=== PATIENT | female | born 1965 | race Caucasian/White ===

== ENCOUNTER → 2016-07-01 | Outpatient (CLI) | payer MEDICAID ==
[~2016-07-01] MED LIST: ADVIL200 MG PO; ALEVE220 MG PO; DICLOFENAC 50MG50 MG PO; FLEXERIL10 MG PO; GABAPENTIN 600600 MG PO; LORTAB 5/500 501 TAB PO; MEDROL 4MG. DOSE4 MG PO; PHENERGAN 25MG.25 M1 PO; PREDNISONE 5MG.5 MG PO; ROBAXIN-750750 MG PO; VICODIN 7.5/501 EACH PO; ZANAFLEX4 MG NG
[2016-07-01 18:55] LABS: LYMPH # 2.2 K/mm3 (0.7-4.5); LYMPH % 9.4 % (10-50.0)
[2016-07-01 18:59] LABS: HEMOGLOBIN 8.2 g/dL (12.2-16.2)
[2016-07-01 19:28] LABS: BUN 22 mg/dL (7-18); GFR (ESTIMATED) 59 ML/MIN (59-)
[2016-07-01 23:03] LABS: NEUTROPHILS 86 % (42-76)
[2016-07-03 08:43] LABS: Folate (Folic Acid) 16.3 ng/mL (>3.0); Vitamin D, 25-Hydroxy 23.2 ng/mL (30.0-100.0)
== END ==
LOC: LAB 18:23
PROVIDERS: Physician Assistant
DX: R51 Headache (principal)

== ENCOUNTER 2017-01-15 06:14 | Day surgery (SDC) | payer MEDICAID ==
[~2017-01-15] VITALS: Ht 170.2 cm; Wt 72.6 kg
[~2017-01-15 06:14] MED LIST changes: +KETOROLAC 10MG10 MG PO; +LIPITOR40 MG PO; +LOVENOX 4040 MG/0.1 IJ; +MULTIVITAMIN1 TAB PO; +PLAVIX 75MG TAB75 MG PO; +PROPRANOLOL HCL40 MG PO; +VITAMIN D31000 IU PO
--- OUTSIDE RECORDS SUMMARY | 2017-01-15 06:17 | External Medical Summary Rpt ---
Demographics Preferred Language Azeri Marital Status Unknown Scientologist Affiliation Unknown Race Unknown Ethnic Group Unknown Author Author , ANNELIESE COY Address Unknown Phone Immunization Unable to retrieve immunization data due to connection failure with Immunization Registry. Please try again later.
--- OUTSIDE RECORDS SUMMARY | 2017-01-15 06:17 | External Medical Summary Rpt ---
Demographics Preferred Language Swedish Marital Status Unknown Church Affiliation Unknown Race Unknown Ethnic Group Unknown Author Author , ANNELIESE COY Address Unknown Phone Immunization Unable to retrieve immunization data due to connection failure with Immunization Registry. Please try again later.
--- OUTSIDE RECORDS SUMMARY | 2017-01-15 06:17 | External Medical Summary Rpt ---
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 M19.90 Unspecified 11-13-2016 osteoarthri tis, unspecified site R40.2141 Coma scale, 11-13-2016 eyes open, spontaneous , in the field [EMT or ambulance] R40.2251 Coma scale, 11-13-2016 best verbal response, oriented, in the field [EMT or ambulance] R40.2361 Coma scale, 11-13-2016 best motor response, obeys commands, in the field [EMT or ambulance] Z87.891 Personal 11-13-2016 history of nicotine dependence Z53.20 Procedure 11-09-2016 and treatment not carried out because of patient's decision for unspecified reasons H54.7 Unspecified 11-07-2016 visual loss D64.9 Anemia, 11-07-2016 unspecified I63.9 Cerebral 11-07-2016 infarction, unspecified R51 Headache 11-07-2016 D50.8 OTHER IRON DEFICIENCY ANEMIAS Results Labs Lab Lab Date Result Refere Interp Status Commen Order Detail nces retati t Range on Blood product special preparation [Type] (01-12-2017 17:30) Blood BLOOD complet product 017 UNIT ed 17:30 RELEASE special prepara tion [Type] Blood product special preparation [Type] (01-12-2017 15:02) Blood BLOOD complet product 017 UNIT ed 15:02 RELEASE special prepara tion [Type] Blood product special preparation [Type] (01-11-2017 12:17) Blood BLOOD complet product 017 UNIT ed 12:17 RELEASE special prepara tion [Type] Blood product special preparation [Type] (01-11-2017 10:28) Blood BLOOD complet product 017 UNIT ed 10:28 RELEASE special prepara tion [Type] Blood type & Crossmatch panel in Blood (01-10-2017 09:18) Blood NEGATIV NEGATIV complet group 017 E E ed antibod 09:18 y screen [Presen ce] in Serum or Plasma Rh POSITIV complet [Type] 017 E ed in 09:18 Blood ABO A complet group 017 ed [Type] 09:18 in Blood Blood type & Crossmatch panel in Blood (01-10-2017 09:18) Major COMPAT complet crossma 017 ed tch 09:18 [interp retatio n] Major COMPAT complet crossma 017 ed tch 09:18 [interp retatio n] by Immedia te spin Blood product special preparation [Type] (12-18-2016 09:27) Blood BLOOD complet product 017 UNIT ed 09:27 RELEASE special prepara tion [Type] Blood group antibody screen [Presence] in Serum or Plasma (12-18-2016) Blood POSITIV NEGATIV Abnorma complet group 017 E E l ed antibod y screen [Presen ce] in Serum or Plasma Blood group antibody screen [Presence] in Serum or Plasma --after transfusion reaction (12-18-2016) Blood POSTIVE complet group 017 ed antibod y screen [Presen ce] in Serum or Plasma --after transfu mary reactio n Major crossmatch.re-crossmatch [interpretation] (12-18-2016) Major COMPATI COMP complet crossma 017 BLE ed tch.re- crossma tch [interp retatio n] Blood type & Crossmatch panel in Blood (12-18-2016) Blood COMPATI complet type & 017 BLE ed Crossma tch panel in Blood Blood type & Crossmatch panel in Blood (12-17-2016 10:55) Blood POSITIV NEGATIV Abnorma complet group 017 E E l ed antibod 10:55 y screen [Presen ce] in Serum or Plasma Rh POSITIV complet [Type] 017 E ed in 10:55 Blood ABO A complet group 017 ed [Type] 10:55 in Blood Blood type & Crossmatch panel in Blood (12-17-2016 10:55) Major COMPAT complet crossma 017 ed tch 10:55 [interp retatio n] Major COMPAT complet crossma 017 ed tch 10:55 [interp retatio n] by Immedia te spin Blood type & Crossmatch panel in Blood (12-09-2016 11:40) Blood POSITIV NEGATIV Abnorma complet group 017 E E l ed antibod 11:40 y screen [Presen ce] in Serum or Plasma Rh POSITIV complet [Type] 017 E ed in 11:40 Blood ABO A complet group 017 ed [Type] 11:40 in Blood Hemoglobin.gastrointestinal [Presence] in Stool (11-28-2016 06:30) Hemoglo POSITIV NEG complet bin.gas 017 E ed trointe 06:30 stinal [Presen ce] in Stool --1st specime n Differential panel, method unspecified - (11-27-2016 12:27) Anisocy 1+ complet tosis 017 ed [Presen 12:27 ce] in Blood Manual ELLIPTO complet differe 017 CYTES ed ntial 12:27 1+ comment [interp retatio n] in Blood Narrati ve Hypochr 2+ complet omia 017 ed [Presen 12:27 ce] in Blood LYMPH 10 % 10% - Normal complet 017 50% ed 12:27 Platele NORMAL complet ts 017 ed [Presen 12:27 ce] in Blood by Light microsc opy Poikilo 2+ complet cytosis 017 ed 12:27 [Presen ce] in Blood by Light microsc opy Hemoglobin.gastrointestinal [Presence] in Stool (11-27-2016) Hemoglo POSITIV NEG complet bin.gas 017 E ed trointe stinal [Presen ce] in Stool --1st specime n Blood group antibody screen [Presence] in Serum or Plasma (11-26-2016 14:35) Blood POSITIV NEGATIV Abnorma complet group 017 E E l ed antibod 14:35 y screen [Presen ce] in Serum or Plasma Direct antiglobulin test.unspecified reagent [Presence] on Red Blood Cells (11-26-2016 14:35) Direct NEGATIV NEGATIV complet antiglo 017 E E ed bulin 14:35 test.un specifi ed reagent [Presen ce] on Red Blood Cells Urinalysis dipstick W Reflex Microscopic panel in Urine (11-26-2016 14:35) Appeara CLEAR CLEAR complet nce of 017 ed Urine 14:35 Bacteri 3+ O complet a 017 ed [Presen 14:35 ce] in Urine sedimen t by Light microsc opy Bilirub NEGATIV NEG complet in 017 E ed [Presen 14:35 ce] in Urine by Test strip Erythro NEGATIV NEG complet cytes 017 E ed [Presen 14:35 ce] in Urine Color YELLOW YELLOW complet of 017 ed Urine 14:35 Hyaline OCC NONE complet casts 017 ed [Presen 14:35 ce] in Urine sedimen t by Light microsc opy Ketones NEGATIV NEG complet 017 E ed [Presen 14:35 ce] in Urine by Automat ed test strip Mucus TRACE NEG Abnorma complet [Presen 017 l ed ce] in 14:35 Urine sedimen t by Light microsc opy Mucus 11-26-2 OCC OCC complet [Presen 017 ed ce] in 14:35 Urine sedimen t by Light microsc opy Nitrite 2 NEGATIV NEG complet 017 E ed [Presen 14:35 ce] in Urine by Test strip Erythro 11-26-2 NONE 0 complet cytes 017 ed [Presen 14:35 ce] in Urine sedimen t by Light microsc opy Epithel 11-26-2 20-50 0#/hp complet ial 017 f - ed cells.s 14:35 5#/hp quamous f [Presen ce] in Urine sedimen t by Microsc opy high power field Urobili 0.2 NEG complet nogen 017 ed [Presen 14:35 ce] in Urine by Test strip Leukocy 5-10 O complet tiesha 017 wbc/hpf ed [#/volu 14:35 me] in Urine Blood product special preparation [Type] (11-26-2016 08:28) Blood BLOOD complet product 017 UNIT ed 08:28 RELEASE special prepara tion [Type] Blood product special preparation [Type] (11-25-2016 15:08) Blood BLOOD complet product 017 UNIT ed 15:08 RELEASE special prepara tion [Type] Blood type & Crossmatch panel in Blood (11-25-2016 10:25) Blood NEGATIV NEGATIV complet group 017 E E ed antibod 10:25 y screen [Presen ce] in Serum or Plasma Rh POSITIV complet [Type] 017 E ed in 10:25 Blood ABO A complet group 017 ed [Type] 10:25 in Blood Blood type & Crossmatch panel in Blood (11-25-2016 10:25) Major COMPAT complet crossma 017 ed tch 10:25 [interp retatio n] Major COMPAT complet crossma 017 ed tch 10:25 [interp retatio n] by Immedia te spin TSH SerPl DL<=0.005 mIU/L-aCnc (11-08-2016 02:39) TSH 1.78 0.4-4.2 complet SerPl 017 uIU/mL ed DL<=0.0 02:39 05 mIU/L-a Cnc Magnesium SerPl-mCnc (11-08-2016 02:39) Magnesi 2.0 1.9-2.4 complet um 017 mg/dL ed SerPl-m 02:39 Cnc Hgb A1c MFr Bld (11-08-2016 02:39) Hgb A1c 6.2 % 4.7-6.0 complet MFr 017 ed Bld 02:39 Ferritin SerPl-mCnc (11-07-2016 20:54) Ferriti 06-08-2 5 ng/mL 13-150 complet n 017 ed SerPl-m 20:54 Cnc Transferrin SerPl-mCnc (11-07-2016 20:54) Transfe 256 200-360 complet rrin 017 mg/dL ed SerPl-m 20:54 Cnc Iron SerPl-mCnc (11-07-2016 20:54) Iron 29 30-160 complet SerPl-m 017 ug/dL ed Cnc 20:54 Hgb A1c MFr Bld (11-07-2016 20:22) Hgb A1c 5.9 % 4.7-6.0 complet MFr 017 ed Bld 20:22 Blood type & Indirect antibody screen panel in Blood (11-07-2016 10:15) Blood NEGATIV NEGATIV complet group 017 E E ed antibod 10:15 y screen [Presen ce] in Serum or Plasma Rh POSITIV complet [Type] 017 E ed in 10:15 Blood ABO A complet group 017 ed [Type] 10:15 in Blood
--- OUTSIDE RECORDS SUMMARY | 2017-01-15 06:17 | External Medical Summary Rpt ---
Author Author , ANNELIESE COY Address Unknown Phone [email or web address] Purpose Continuity of Care Document - 11-07-2016 [...]
--- OUTSIDE RECORDS SUMMARY | 2017-01-15 06:19 | External Medical Summary Rpt ---
Author Author [employer], [employer] Organization [employer] Address Unknown Phone Unavailable Results Hemoglobin & Hematocrit panel in Blood Observa Value Referen Units Interpr Notes Date tion ce etation Range Hematocri 37.0 - % Low No Aug 14 t [Volume 47.0 informati 2017 on in 10:16 AM Fraction] source of Blood data Hemoglobi 12.2 - g/dL Low No Dec 14 n 16.2 informati 2017 [Mass/vol on in 10:16 AM ume] in source Blood data Blood product special preparation [Type] Observa Value Referen Units Interpr Notes Date tion ce etation Range Blood BLOOD No No No BLOOD Jan 12 product UNIT informa informa informa UNIT # 2017 RELEASE tion in tion in ti in : W0382 5:30 PM special source source source 17 data data data [id number] prepara RELEASE tion D [Type] 7 [id number] rks,Lc nO POSITIV E Blood product special preparation [Type] Observa Value Referen Units Interpr Notes Date tion ce etation Range Blood BLOOD No No No BLOOD Jan 12 product UNIT informa informa informa UNIT # 2017 RELEASE tion in tion in in : W0382 3:02 PM special source source source 17 data data data [id number] prepara RELEASE tion D [Type] 7Marie Smith POS Hemoglobin & Hematocrit panel in Blood Observa Value Referen Units Interpr Notes Date tion ce etation Range 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: POST BLOOD TO BE DRAWN AT 1455 Hematocri 37.0 - % Low No Aug 12 t [Volume 47.0 informati 2016 3:02 on in PM Fraction] source of Blood data Hemoglobi 12.2 - g/dL Low No Aug 12 n 16.2 informati 2016 3:02 [Mass/vol on in PM ume] in source Blood data Blood product special preparation [Type] Observa Value Referen Units Interpr Notes Date tion ce etation Range Blood BLOOD No No No BLOOD Jan 11 product UNIT informa informa informa UNIT # 2017 RELEASE tion in in in : W0382 12:17 special source source source 17 PM data data data [id number] prepara [id number] tion LEASED [Type] 7 O'Kirt, Heena Blood product special preparation [Type] Observa Value Referen Units Interpr Notes Date ti ce etation Range Blood BLOOD No No No BLOOD Jan 11 product UNIT informa informa informa UNIT # 2017 RELEASE ti in in in : W0382 10:28 special source source source 17 AM data data data [id number] prepara [id number] tion LEASED [Type] 7O'Kirt ,Kaitly n Blood type & Crossmatch panel in Blood Observa Value Referen Units Interpr Notes Date ti ce etation Range Major COMPAT No No No No Jan 10 crossma informa informa informa informa 2017 tch tion in in in in 9:18 AM [interp source source source source retatio data data data data n] Major COMPAT No No No No Jan 10 crossma informa informa informa informa 2017 tch tion in tion in in in 9:18 AM [interp source source source source retatio data data data data n] by Immedia te spin Blood type & Crossmatch panel in Blood Observa Value Referen Units Interpr Notes Date ce etation Range Major COMPAT No No No No Jan 10 crossma informa informa informa informa 2017 tch tion in tion in ti in in 9:18 AM [interp source source source source retatio data data data data n] Major COMPAT No No No No Jan 10 crossma informa informa informa informa 2017 tch tion in tion in ti in ti in 9:18 AM [interp source source source source retatio data data data data n] by Immedia te spin Blood type & Crossmatch panel in Blood Observa Value Referen Units Interpr Notes Date ti ce etation Range Major COMPAT No No No No Jan 10 crossma informa informa informa informa 2017 tch tion in tion in tion in tion in 9:18 AM [interp source source source source retatio data data data data n] Major COMPAT No No No No Jan 10 crossma informa informa informa informa 2016 tch tion in tion in tion in tion in 9:18 AM [interp source source source source retatio data data data data n] by Immedia te spin Blood type & Crossmatch panel in Blood Observa Value Referen Units Interpr Notes Date tion ce etation Range Blood NEGATIV NEGATIV No No PATIENT Jan 10 group E E informa informa HAS 2017 antibod tion in tion in PREVIOU 9:18 AM y source source S HX OF screen data data [Presen ANTI-Fy ce] in a AND Serum ANTI-E. or SPECIME Plasma N SENT TO [facility] FOR FURTHER TESTING ANDANTI GEN NEGATIV E UNITS. Rh POSITIV No No No No Jan 10 [Type] E informa informa informa informa 2016 in tion in tion in tion in ti in 9:18 AM Blood source source source source data data data data ABO A No No No No Jan 10 group informa informa informa informa 2016 [Type] tion in tion in tion in tion in 9:18 AM in source source source source Blood data data data data Blood type & Crossmatch panel in Blood Observa Value Referen Units Interpr Notes Date ce etation Range Major COMPAT No No No No Jan 10 crossma informa informa informa informa 2016 tch tion in tion in tion in tion in 9:18 AM [interp source source source source retatio data data data data n] Major COMPAT No No No No Jan 10 crossma informa informa informa informa 2016 tch tion in tion in tion in tion in 9:18 AM [interp source source source source retatio data data data data n] by Immedia te spin Hemoglobin & Hematocrit panel in Blood Observa Value Referen Units Interpr Notes Date ti ce etation Range Hematocri 37.0 - % Low No Jan 10 t [Volume 47.0 informati 2016 9:18 on in AM Fraction] source of Blood data Hemoglobi 12.2 - g/dL Low alert Jan 10 n 16.2 2016 9:18 [Mass/vol CRITICAL AM ume] in RESULTS Blood KATERINA LTS CALLED TO: MICHELLE 01/10/17 0948Meule Dyan mendez Reticulocytes [#/volume] in Blood by Automated count Observa Value Referen Units Interpr Notes Date tion ce etation Range Reticuloc 0.9 - 3.2 % High No Jan 01 ytes informati 2016 [#/volume on in 11:51 AM ] in source Blood by data Automated count INR in Blood by Coagulation assay Observa Value Referen Units Interpr Notes Date tion ce etation Range INR in 0.9 - 1.1 No Normal INDICATIO Jan 01 Blood by informati N 2017 Coagulati on in 11:51 AM on assay source INR data RANGETHER APY FOR DVT, PE, ATRIAL FIB; 2.0 - 3.0PROPHY LAXIS FOR VTETHERAP Y FOR MECHANICA L HEART 2.5 - 3.5VALVE; PREVENTIO N OF SYSTEMICE MBOLISM SECONDARY TO AMI Prothromb 9.4 - SECONDS Normal No Jan 01 in time 11.8 informati 2016 (PT) in on in 11:51 AM Platelet source poor data plasma by Coagulati on assay Activated partial thrombplastin time (aPTT) in Platelet poor plasma by Coagulation assay Observa Value Referen Units Interpr Notes ti etation Range Activated 23.6 - SECONDS High RESULTS Jan 01 partial 34.0 CALLED TO 2017 thrombpla 11:51 AM stin time PHARMACIS (aPTT) T: HUSSAIN in Platelet H001/01/17 poor 1301 plasma by Melodie Posey Coagulluisa on assay Choriogonadotropin [Units/volume] in Serum or Plasma Observa Value Referen Units Interpr Notes Date tion ce etation Range Choriogon NEG No No No Dec 19 adotropin informati informati informati 2016 1:25 on in on in on in PM [Units/vo source source source lume] in data data data Serum or Plasma Carcinoembryonic Ag [Mass/volume] in Serum or Plasma Observa Value Referen Units Interpr Notes Date tion ce etation Range Carcinoem 0.0 - 4.7 ng/mL High Meryl Dec 19 bryonic ECLIA 2017 Ag methodolo 12:49 PM [Mass/vol gy ume] in Nonsmoker Serum or s Plasma <3.9Smoke rs <5.6Perfo rmed at: CB - [facility] [id number] [place], [place] [id number] [employer] Teacher: Jorge Guillen PhD, Phone: [phone] Urea nitrogen [Mass/volume] in Serum or Plasma Observa Value Referen Units Interpr Notes Date ti ce etation Range Urea 7 - 18 mg/dL Normal No Dec 19 nitrogen informati 2016 [Mass/vol on in 12:49 PM ume] in source Serum or data Plasma CREATININE Observa Value Referen Units Interpr Notes Date ti ce etation Range Creatinin 0.55 - mg/dL Normal No Dec 19 e 1.02 informati 2016 [Mass/vol on in 12:49 PM ume] in source Serum or data Plasma Estimated 59- ML/MIN No REFERENCE Dec 19 informati RANGE: 2017 glomerula on in >60 12:49 PM r source ML/MIN/1. filtratio data 73 SQUARE n rate METERSIf (GF this patient is -A merican, then multiply theresult by 1.210. Hemoglobin & Hematocrit panel in Blood Observa Value Referen Units Interpr Notes Date etation Range Hematocri 37.0 - % Low No Dec 18 t [Volume 47.0 informati 2016 on in 11:40 AM Fraction] source of Blood data Hemoglobi 12.2 - g/dL Low Dec 18 n 16.2 2016 [Mass/vol CRITICAL 11:40 AM ume] in RESULTS Blood RESU LTS CALLED TO: MARY 12/18/16 1204 Darrin Husain Blood product special preparation [Type] Observa Value Referen Units Interpr Notes Date ti ce etation Range Blood BLOOD No No No BLOOD Dec 18 product UNIT informa informa informa UNIT # 2017 RELEASE tion in tion in tion in : W0382 9:27 AM special source source source 17 data data data [id number] prepara RELEASE tion D [Type] [id number] vee O POSITIV E ANTI-E, ANTI-FY A Blood group antibody screen [Presence] in Serum or Plasma Observa Value Referen Units Interpr Notes Date tion ce etation Range Blood POSITIV NEGATIV No Abnorma No Dec 18 group E E informa l informa 2016 antibod tion in tion in y source source screen data data [Presen ce] in Serum or Plasma Blood group antibody screen [Presence] in Serum or Plasma --after transfusion reaction Observa Value Referen Units Interpr Notes Date ti ce etation Range Blood POSTIVE No No No No Dec 18 group informa informa informa informa 2016 antibod tion in tion in tion in tion in y source source source source screen data data data data [Presen ce] in Serum or Plasma --after transfu mary reactio n Major crossmatch.re-crossmatch [interpretation] Observa Value Referen Units Interpr Notes Date ti ce etation Range Major COMPATI COMP No No No Dec 18 crossma BLE informa informa informa 2016 tch.re- tion in tion in ti in crossma source source source tc data data data [interp retatio n] Blood type & Crossmatch panel in Blood Observa Value Referen Units Interpr Notes Date ti ce etation Range Blood COMPATI No No No No Dec 18 type & BLE informa informa informa informa 2016 Crossma tion in tion in tion in tion in tch source source source source panel data data data data in Blood Hematocrit [Volume Fraction] of Blood Observa Value Referen Units Interpr Notes Date ce etation Range Hematocri 37.0 - % Low No Dec 18 t [Volume 47.0 informati 2016 on in Fraction] source of Blood data HCT POST-TRANSFUSION RX Observa Value Referen Units Interpr Notes Date etation Range HCT 27.4 37.7 - No Low No Dec 18 POST-TR 47.9 informa informa 2016 ANSFUSI tion in ti in ON RX source source data data Hemoglobin [Mass/volume] in Blood Observa Value Referen Units Interpr Notes Date ti ce etation Range Hemoglobi 12.2 - g/dL Low alert Dec 18 n 16.2 2017 [Mass/vol CRITICAL ume] in RESULTS Blood RESU LTS CALLED TO: CAITY @0943 12/18/16 BY LAB.[facility] 1022 Leticia Craig Hemoglobin [Mass/volume] in Blood Observa Value Referen Units Interpr Notes Date tion ce etation Range Hemoglobi 12.2 - No Low No Dec 18 n 16.2 informati informati 2017 [Mass/vol on in on in ume] in source source Blood data data Bilirubin.total [Mass/volume] in Serum or Plasma Observa Value Referen Units Interpr Notes Date tion ce etation Range Bilirubin 0.2 - 1.0 mg/dL Normal No Dec 18 .total informati 2016 [Mass/vol on in ume] in source Serum or data Plasma Bilirubin.total [Mass/volume] in Serum or Plasma Observa Value Referen Units Interpr Notes Date ti ce etation Range Bilirubin 0.2 - 1.0 No Normal No Dec 18 .total informati informati 2016 [Mass/vol on in on in ume] in source source Serum or data data Plasma TRANSFUSION RX WORKUP Observa Value Referen Units Interpr Notes Date ti ce etation Range Direct POSITIV NEGATIV No No Dec 17 antiglo E E informa informa 2016 bulin tion in tion in 11:40 test.un source source AM specifi data data ed reagent [Presen ce] on Red Blood Cells Direct POSITIV NEGATIV No Abnorma No Dec 17 antiglo E E informa l informa 2016 bulin tion in tion in 11:40 test.un source source AM specifi data data ed reagent [Presen ce] on Red Blood Cells --after transfu mary Rh POSITIV No No No No Dec 17 [Type] E informa informa informa informa 2016 in tion in tion in tion in tion in 11:40 Blood source source source source AM data data data data Rh POSITIV No No No No Dec 17 [Type] E informa informa informa informa 2016 in tion in tion in tion in tion in 11:40 Blood-- source source source source AM after data data data data transfu mary reactio n ABO A No No No No Dec 17 group informa informa informa informa 2017 [Type] tion in tion in tion in in 11:40 in source source source source AM Blood data data data data ABO A No No No No Dec 17 group informa informa informa informa 2017 [Type] tion in tion in tion in in 11:40 in source source source source AM Blood-- data data data data after transfu mary reactio n Blood type & Crossmatch panel in Blood Observa Value Referen Units Interpr Notes Date ti ce etation Range Hold? N Transfuse now? 2 UNITS NOW Blood POSITIV NEGATIV No Abnorma No Dec 17 group E E informa l informa 2017 antibod tion in in 10:55 y source source AM screen data data [Presen ce] in Serum or Plasma Rh POSITIV No No No No Dec 17 [Type] E informa informa informa informa 2017 in tion in tion in ti in in 10:55 Blood source source source source AM data data data data ABO A No No No No Dec 17 group informa informa informa informa 2016 [Type] tion in tion in ti in in 10:55 in source source source source AM Blood data data data data Blood type & Crossmatch panel in Blood Observa Value Referen Units Interpr Notes Date ti ce etation Range Hold? N Transfuse now? 2 UNITS NOW Major COMPAT No No No No Dec 17 crossma informa informa informa informa 2017 tch tion in tion in tion in in 10:55 [interp source source source source AM retatio data data data data n] Major COMPAT No No No No Dec 17 crossma informa informa informa informa 2017 tch tion in tion in tion in in 10:55 [interp source source source source AM retatio data data data data n] by Immedia te spin Blood type & Crossmatch panel in Blood Observa Value Referen Units Interpr Notes Date ti ce etation Range Major COMPAT No No No No Dec 17 crossma informa informa informa informa 2017 tch tion in tion in tion in tion in 10:55 [interp source source source source AM retatio data data data data n] Major COMPAT No No No No Dec 17 crossma informa informa informa informa 2017 tch tion in tion in tion in tion in 10:55 [interp source source source source AM retatio data data data data n] by Immedia te spin CBC W Auto Differential panel in Blood Observa Value Referen Units Interpr Notes Date tion ce etation Range Basophils 0 - 0.2 K/MM3 Normal No Dec 17 informati 2016 9:25 [#/volume on in AM ] in source Blood by data Automated count Basophils 0.1 - 2.0 % Normal No Dec 17 informati 2017 9:25 leukocyte on in AM s in source Blood by data Automated count Eosinophi 0.0 - 0.4 K/mm3 Normal No Dec 17 ls informati 2016 9:25 [#/volume on in AM ] in source Blood by data Automated count Eosinophi 0.1 - % Normal No Dec 17 ls/ 12.0 informati 2016 9:25 leukocyte on in AM s in source Blood by data Automated count Granulocy 1.8 - 7.8 K/mm3 Normal No Dec 17 tiesha informati 2017 9:25 [#/volume on in AM ] in source Blood by data Automated count Granulocy 37.0 - % Normal No Dec 17100 80.0 informati 2016 9:25 leukocyte on in AM s in source Blood by data Automated count Hematocri 37.0 - % Low No Dec 17 t [Volume 47.0 informati 2016 9:25 on in AM Fraction] source of Blood data Hemoglobi 12.2 - g/dL Low alert Dec 17 n 16.2 2016 9:25 [Mass/vol CRITICAL AM ume] in RESULTS Blood RESU LTS CALLED TO: CAITY 12/17/16 0943 Darrin Husain Lymphocyt 0.7 - 4.5 K/mm3 Normal No Dec 17 es informati 2016 9:25 [#/volume on in AM ] in source Unspecifi data ed specimen by Automated count Lymphocyt 10 - 50.0 % Normal No Dec 17 es informati 2017 9:25 [#/volume on in AM ] in source Unspecifi data ed specimen by Automated count Erythrocy 27 - 31.2 pg Low No Dec 17 te mean informati 2017 9:25 corpuscul on in AM ar source hemoglobi data n [Entitic mass] Erythrocy 31.8 - g/dl Low No Dec 17 te mean 35.4 informati 2017 9:25 corpuscul on in AM ar source hemoglobi data n concentra tion [Mass/vol ume] by Automated count Erythrocy 82.2 - fl Low No Dec 17 te mean 97.8 informati 2016 9:25 corpuscul on in AM ar volume source [Entitic data volume] by Automated count Monocytes 0.1 - 1.0 K/mm3 Normal No Dec 17 informati 2017 9:25 [#/volume on in AM ] in source Blood by data Automated count Monocytes 1.7 - 9.3 % Normal No Dec 17 /100 informati 2016 9:25 leukocyte on in AM s in source Blood by data Automated count Platelet 7.4 - fl Low No Dec 17 mean 10.4 informati 2017 9:25 volume on in AM [Entitic source volume] data in Blood by Automated count Platelets 142 - 424 K/mm3 No No Dec 17 informati informati 2017 9:25 [#/volume on in on in AM ] in source source Blood data data Erythrocy 4.2 - 5.4 M/mm3 Low No Dec 17 tiesha informati 2016 9:25 [#/volume on in AM ] in source Amniotic data fluid Erythrocy 11.5 - % High No Dec 17 te 17.5 informati 2016 9:25 distribut on in AM ion width source [Entitic data volume] by Automated count Leukocyte 4.8 - K/MM3 Normal No Dec 17 s 10.8 informati 2016 9:25 [#/volume on in AM ] in source Blood data Blood type & Crossmatch panel in Blood Observa Value Referen Units Interpr Notes Date tion ce etation Range Hold? N Transfuse now? 2 UNITS NOW Blood POSITIV NEGATIV No Abnorma No Dec 09 group E E informa l informa 2016 antibod tion in tion in 11:40 y source source AM screen data data [Presen ce] in Serum or Plasma Rh POSITIV No No No No Dec 09 [Type] E informa informa informa informa 2017 in tion in tion in tion in tion in 11:40 Blood source source source source AM data data data data ABO A No No No No Dec 09 group informa informa informa informa 2017 [Type] tion in tion in tion in tion in 11:40 in source source source source AM Blood data data data data CBC W Auto Differential panel in Blood Observa Value Referen Units Interpr Notes Date tion ce etation Range SPECIMEN COMMENT: ORDERED FOR TEST SCHEDULED ON 12/12 Basophils 0 - 0.2 K/MM3 Normal No Dec 09 informati 2016 [#/volume on in 11:40 AM ] in source Blood by data Automated count Basophils 0.1 - 2.0 % Normal No Dec 09 / inform2016 leukocyte on in 11:40 AM s in source Blood by data Automated count Eosinophi 0.0 - 0.4 K/mm3 Normal No Dec 09 ls ati 2016 [#/volume on in 11:40 AM ] in source Blood by data Automated count Eosinophi 0.1 - % Normal No Dec 09 ls/100 12.0 2016 leukocyte on in 11:40 AM s in source Blood by data Automated count Granulocy 1.8 - 7.8 K/mm3 Normal No Dec 09 tiesha ati 2016 [#/volume on in 11:40 AM ] in source Blood by data Automated count Granulocy 37.0 - % Normal No Dec 09 tiesha/100 80.0 2016 leukocyte on in 11:40 AM s in source Blood by data Automated count Hematocri 37.0 - % Low No Dec 09 t [Volume 47.0 ati 2016 on in 11:40 AM Fraction] source of Blood data Hemoglobi 12.2 - g/dL Low No Dec 09 n 16.2 ati 2016 [Mass/vol on in 11:40 AM ume] in source Blood data Lymphocyt 0.7 - 4.5 K/mm3 Normal No Dec 09 es informati 2016 [#/volume on in 11:40 AM ] in source Unspecifi data ed specimen by Automated count Lymphocyt 10 - 50.0 % Normal No Dec 09 es informati 2016 [#/volume on in 11:40 AM ] in source Unspecifi data ed specimen by Automated count Erythrocy 27 - 31.2 pg Low No Dec 09 te mean ati 2016 corpuscul on in 11:40 AM ar source hemoglobi data n [Entitic mass] Erythrocy 31.8 - g/dl Low No Dec 09 te mean 35.4 2016 corpuscul on in 11:40 AM ar source hemoglobi data n concentra tion [Mass/vol ume] by Automated count Erythrocy 82.2 - fl Normal No Dec 09 te mean 97.8 2016 corpuscul on in 11:40 AM ar volume source [Entitic data volume] by Automated count Monocytes 0.1 - 1.0 K/mm3 Normal No Dec 09 informati 2016 [#/volume on in 11:40 AM ] in source Blood by data Automated count Monocytes 1.7 - 9.3 % Normal No Dec 09 /100 inform2016 leukocyte on in 11:40 AM s in source Blood by data Automated count Platelet 7.4 - fl Low Dec 09 mean 10.4 inform2016 volume on in 11:40 AM [Entitic source volume] data in Blood by Automated count Platelets 142 - 424 K/mm3 High No Dec 09 informati 2016 [#/volume on in 11:40 AM ] in source Blood data Erythrocy 4.2 - 5.4 M/mm3 Low No Dec 09 tiesha inform2016 [#/volume on in 11:40 AM ] in source Amniotic data fluid Erythrocy 11.5 - % High No Dec 09 te 17.5 2016 distribut on in 11:40 AM ion width source [Entitic data volume] by Automated count Leukocyte 4.8 - K/MM3 Normal No Dec 09 s 10.8 informati 2016 [#/volume on in 11:40 AM ] in source Blood data Hemoglobin & Hematocrit panel in Blood Observa Value Referen Units Interpr Notes Date tion ce etation Range Hematocri 37.0 - % Low No Dec 09 t [Volume 47.0 informati 2016 on in 11:40 AM Fraction] source of Blood data Hemoglobi 12.2 - g/dL Low No Dec 09 n 16.2 informati 2016 [Mass/vol on in 11:40 AM ume] in source Blood data Hemoglobin & Hematocrit panel in Blood Observa Value Referen Units Interpr Notes Date tion ce etation Range Hematocri 37.0 - % Low No Dec 09 t [Volume 47.0 informati 2016 on in 11:40 AM Fraction] source of Blood data Hemoglobi 12.2 - g/dL Low No Dec 09 n 16.2 informati 2016 [Mass/vol on in 11:40 AM ume] in source Blood data Hemoglobin.gastrointestinal [Presence] in Stool Observa Value Referen Units Interpr Notes Date tion ce etation Range Hemoglo POSITIV NEG No No No Nov 28 bin.gas E informa informa informa 2017 trointe tion in tion in tion in 6:30 AM stinal source source source [Presen data data data ce] in Stool --1st specime n Cobalamin (Vitamin B12) [Mass/volume] in Serum Observa Value Referen Units Interpr Notes Date tion ce etation Range Cobalamin 211 - 946 pg/mL No No Nov 27 (Vitamin informati informati 2016 B12) on in on in 12:27 PM [Mass/vol source source ume] in data data Serum Iron and TIBC Observa Value Referen Units Interpr Notes Date tion ce etation Range Iron 250 - 450 ug/dL No No Nov 27 binding informati informati 2017 capacity on in on in 12:27 PM [Mass/vol source source ume] in data data Serum or Plasma Iron 131 - 425 ug/dL No No Nov 27 binding informati informati 2017 capacity. on in on in 12:27 PM unsaturat source source ed data data [Mass/vol ume] in Serum or Plasma Iron 27 - 159 ug/dL Low No Nov 27 [Mass/vol informati 2017 ume] in on in 12:27 PM Serum or source Plasma data Iron 15 - 55 % Low No Nov 27 saturatio informati 2017 n [Mass] on in 12:27 PM in Serum source or Plasma data Folate [Mass/volume] in Serum or Plasma Observa Value Referen Units Interpr Notes Date tion ce etation Range Folate >3.0 ng/mL No A serum Nov 27 [Mass/vol informati folate 2017 ume] in on in concentra 12:27 PM Serum or source tion of Plasma data less than 3.1 ng/mL isconside red to represent clinical deficienc y.Perform ed at: - [facility] [id number] [place], [place] [id number] [employer]: Jorge Guillen PhD, Phone: [phone] Haptoglobin [Mass/volume] in Serum or Plasma Observa Value Referen Units Interpr Notes Date tion ce etation Range Haptoglob 34 - 200 mg/dL No Nov 27 in informati at: CB 2017 [Mass/vol on in - [facility] 12:27 PM ume] in source Serum or data [id number] [place], [place] [id number] [employer] Teacher: Jorge Guillen PhD, Phone: [phone] CBC W Auto Differential panel in Blood Observa Value Referen Units Interpr Notes Date tion ce etation Range Basophils 0 - 0.2 K/MM3 Normal No Nov 27 inform2016 [#/volume on in 12:27 PM ] in source Blood by data Automated count Basophils 0.1 - 2.0 % Normal No Nov 27 /100 2016 leukocyte on in 12:27 PM s in source Blood by data Automated count Eosinophi 0.0 - 0.4 K/mm3 Normal Nov 27 ls 2016 [#/volume on in 12:27 PM ] in source Blood by data Automated count Eosinophi 0.1 - % Normal No Nov 27 ls/100 12.0 2016 leukocyte on in 12:27 PM s in source Blood by data Automated count Granulocy 1.8 - 7.8 K/mm3 High Nov 27 tiesha 2016 [#/volume on in 12:27 PM ] in source Blood by data Automated count Granulocy 37.0 - % High No Nov 27 tiesha/100 80.0 2016 leukocyte on in 12:27 PM s in source Blood by data Automated count Hematocri 37.0 - % Low Nov 27 t [Volume 47.0 2016 on in 12:27 PM Fraction] source of Blood data Hemoglobi 12.2 - g/dL Low Nov 27 n 16.2 2016 [Mass/vol on in 12:27 PM ume] in source Blood data Lymphocyt 0.7 - 4.5 K/mm3 Normal Nov 27 es 2016 [#/volume on in 12:27 PM ] in source Unspecifi data ed specimen by Automated count Lymphocyt 10 - 50.0 % Low Nov 27 es 2016 [#/volume on in 12:27 PM ] in source Unspecifi data ed specimen by Automated count Erythrocy 27 - 31.2 pg Low Nov 27 te mean 2016 corpuscul on in 12:27 PM ar source hemoglobi data n [Entitic mass] Erythrocy 31.8 - g/dl Low No Nov 27 te mean 35.4 inform2016 corpuscul on in 12:27 PM ar source hemoglobi data n concentra tion [Mass/vol ume] by Automated count Erythrocy 82.2 - fl Low No Nov 27 te mean 97.8 2016 corpuscul on in 12:27 PM ar volume source [Entitic data volume] by Automated count Monocytes 0.1 - 1.0 K/mm3 High No Nov 27 inform2016 [#/volume on in 12:27 PM ] in source Blood by data Automated count Monocytes 1.7 - 9.3 % Normal No Nov 27 /100 inform2016 leukocyte on in 12:27 PM s in source Blood by data Automated count Platelet 7.4 - fl Low Nov 27 mean 10.4 2016 volume on in 12:27 PM [Entitic source volume] data in Blood by Automated count Platelets 142 - 424 K/mm3 High No Nov 27 inform2016 [#/volume on in 12:27 PM ] in source Blood data Erythrocy 4.2 - 5.4 M/mm3 Low No Nov 27 tiesha inform2016 [#/volume on in 12:27 PM ] in source Amniotic data fluid Erythrocy 11.5 - % High Nov 27 te 17.5 2016 distribut on in 12:27 PM ion width source [Entitic data volume] by Automated count Leukocyte 4.8 - K/MM3 High Nov 27 s 10.8 2016 [#/volume on in 12:27 PM ] in source Blood data Differential panel, method unspecified - Observa Value Referen Units Interpr Notes Date tion ce etation Range Anisocy 1+ No No No No Nov 27 tosis informa informa informa informa 2016 [Presen tion in tion in tion in tion in 12:27 ce] in source source source source PM Blood data data data data Manual ELLIPTO No No No No Nov 27 differe CYTES informa informa informa informa 2016 ntial 1+ tion in tion in tion in tion in 12:27 comment source source source source PM data data data data [interp retatio n] in Blood Narrati ve Eosinophi 0 - 3 % Normal Nov 27 ls/100 informati 2016 leukocyte on in 12:27 PM s in source Blood by data Manual count Hypochr 2+ No No No No Nov 27 omia informa informa informa informa 2016 [Presen tion in tion in tion in tion in 12:27 ce] in source source source source PM Blood data data data data LYMPH 10 10 - 50 % Normal No Nov 27 informa 2016 tion in 12:27 source PM data Monocytes 2 - 9 % Normal No Nov 27 /100 informati 2016 leukocyte on in 12:27 PM s in source Blood by data Automated count Platele NORMAL No No No No Nov 27 ts informa informa informa informa 2016 [Presen tion in tion in tion in tion in 12:27 ce] in source source source source PM Blood data data data data by Light microsc opy Poikilo 2+ No No No No Nov 27 cytosis informa informa informa informa 2016 tion in tion in tion in tion in 12:27 [Presen source source source source PM ce] in data data data data Blood by Light microsc opy Neutrophi 42 - 76 % High No Nov 27 ls 2016 [#/volume on in 12:27 PM ] in source Blood by data Automated count Cells No #CELLS No No Nov 27 Counted informati informati informati 2016 Total [#] on in on in on in 12:27 PM in Blood source source source data data data Reticulocytes [#/volume] in Blood by Automated count Observa Value Referen Units Interpr Notes Date ti ce etation Range Reticuloc 0.9 - 3.2 % High No Nov 27 ytes 2016 [#/volume on in 12:27 PM ] in source Blood by data Automated count Ferritin [Mass/volume] in Serum or Plasma Observa Value Referen Units Interpr Notes Date tion ce etation Range Ferritin 8 - 388 ng/mL Normal No Nov 27 [Mass/vol informati 2016 ume] in on in 12:27 PM Serum or source Plasma data Lactate dehydrogenase [Enzymatic activity/volume] in Unspecified specimen Observa Value Referen Units Interpr Notes Date tion ce etation Range Lactate 82 - 234 U/L High No Nov 27 dehydroge informati 2016 nase on in 12:27 PM [Enzymati source c data activity/ volume] in Unspecifi ed specimen Thyrotropin [Units/volume] in Serum or Plasma Observa Value Referen Units Interpr Notes Date tion ce etation Range Thyrotrop 0.358 - uIU/ml No No Nov 27 in 3.740 informati informati 2017 [Units/vo on in on in 12:27 PM lume] in source source Serum or data data Plasma Hemoglobin.gastrointestinal [Presence] in Stool Observa Value Referen Units Interpr Notes Date tion ce etation Range Hemoglo POSITIV NEG No No No Nov 27 bin.gas E informa informa informa 2017 trointe tion in tion in tion in stinal source source source [Presen data data data ce] in Stool --1st specime n Antinuclear Antibodies, IFA Observa Value Referen Units Interpr Notes Date tion ce etation Range Note: Comment . No No A Nov 26 informa informa positiv 2017 tion in tion in e SIM 2:35 PM source source result data data may occur in healthy individ uals (lowtit er) or be associa lata with a variety of disease s. Seeinte rpretat ion chart which is not all inclusi ve:Kimberly shultz Antigen Detecte d Suggest ed Disease Associa tion--- ------- - ------- ------- -- ------- ------- ------- ------- -Homoge neous DNA(ds, ss), SLE - High titersN ucleoso mes,His tones Drug-in duced SLE---- ------- ------- ------- -- ------- ------- ------- ------- -Speckl ed Sm, MEDICAL CLAIMS ASSISTANT, SCL-70, SLE,MCT D,PSS (diffus e form),S S-A/SS- B Sjogren s------ ----- ------- ------- -- ------- ------- ------- ------- -Nucleo lar SCL-70, PM-1/SC L High titers Sclerod mirna,PM /DM---- ------- ------- ------- -- ------- ------- ------- ------- -Centro mere Centrom ere PSS (limite d form) w/Crest syndrom e variabl e------ ----- ------- ------- -- ------- ------- ------- ------- -Nuclea r Dot Sp100,p 80-coil in Primary Biliary Cirrhos is----- ------ ------- ------- -- ------- ------- ------- ------- -Nuclea r GP210, Primary Biliary Cirrhos isMembr ane joe A,B,C-- ------- -- ------- ------- -- ------- ------- ------- ------- -Perfor med at: [facility] [place] [id number] Directo r: Jorge Frank ti PhD, Phone: [phone] [facility] Wink[employer] . No High No Nov 26 Ab informati informati 2016 2:35 pattern.s on in on in PM peckled source source [Titer] data data in Serum Nuclear . No High Negative Nov 26 Ab informati 2016 2:35 [Titer] on in <1:80Bord PM in Serum source andrea by data 1:80Posit Immunoflu moshe orescence >1:80 Cobalamin (Vitamin B12) [Mass/volume] in Serum Observa Value Referen Units Interpr Notes Date tion ce etation Range Cobalamin 211 - 946 pg/mL No Performed Nov 26 (Vitamin informati at: CB 2016 2:35 B12) on in - [facility] PM [Mass/vol source ume] in data [id number] Serum [address] [place], [place] [id number] [employer] Teacher: Jorge Guillen PhD, Phone: [phone] Cold agglutinin [Titer] in Serum or Plasma by Agglutination Observa Value Referen Units Interpr Notes Date tion ce etation Range Cold Neg <1:32 No No Performed Nov 26 agglutini informati informati at: BN 2017 2:35 n [Titer] on in on in - [facility] PM in Serum source source or data data [facility] Plasma by [id number], tion [place], [place] [id number] [employer]ocational [employer] Teacher: Hugo Leigh MD, Phone: [phone] Folate [Mass/volume] in Serum or Plasma Observa Value Referen Units Interpr Notes Date tion ce etation Range Folate >3.0 ng/mL No A serum Nov 26 [Mass/vol informati folate 2017 2:35 ume] in on in concentra PM Serum or source tion of Plasma data less than 3.1 ng/mL isconside red to represent clinical deficienc y.Perform ed at: CB - [facility] [id number] [place], [place] [id number] [employer] Teacher: Jorge Guillen PhD, Phone: [phone] Haptoglobin [Mass/volume] in Serum or Plasma Observa Value Referen Units Interpr Notes Date tion ce etation Range Haptoglob 34 - 200 mg/dL No Performed Nov 26 in informati at: CB 2016 2:35 [Mass/vol on in - [facility] PM ume] in source Serum or data [place] [address] Plasma [address] [place], [place] [id number] [employer] Teacher: Jorge Guillen PhD, Phone: [phone] Lprtnfx-4-Ceeikervf dehydrogenase [Enzymatic activity/volume] in Red Blood Cells Observa Value Referen Units Interpr Notes Date ti ce etation Range Glucose-6 221 - 570 UNITS No TEST Nov 26 -Phosphat informati 2016 2:35 e on in PM dehydroge source RESULT nase data [Enzymati FLAG c REFERENCE activity/ G-6-PD, mass] in QUANT, Red Blood BLOODAND Cells RBC 3.76 x10E6/uL LOW 3.77-5.28 G-6-PD, QUANT 382 U/10E12 RBC HIGH 146-376CO MMENT:Whe n decreased , G-6-PD, Quant. values are associate d withacute hemolytic anemia when defficien t individua ls are exposed tooxidati ve stress, such as with certain medicatio ns (e.g.prim aquine), infection , or ingestion of nano beans.Cau tion: In patients with acute hemolysis (e.g. abnormall ylow RBC values), testing for G-6-PD may be falsely normalbec ause older erythrocy tiesha with a higher enzyme deficienc yhave been hemolyzed . Young erythrocy tiesha and reticuloc yteshave normal or near-norm al enzyme activity. Normal values ofG-6-PD may be measured for several weeks following ahemolyti c event. Lactate dehydrogenase [Enzymatic activity/volume] in Unspecified specimen Observa Value Referen Units Interpr Notes Date tion ce etation Range Lactate 82 - 234 U/L High No Nov 26 dehydroge informati 2017 2:35 nase on in PM [Enzymati source c data activity/ volume] in Unspecifi ed specimen Hepatic function 2000 panel in Serum or Plasma Observa Value Referen Units Interpr Notes Date tion ce etation Range Albumin 3.4 - 5.0 gm/dL Normal No Nov 26 [Mass/vol informati 2017 2:35 ume] in on in PM Serum or source Plasma data Alkaline 46 - 116 U/L Normal No Nov 26 phosphata informati 2017 2:35 se on in PM [Enzymati source c data activity/ volume] in Serum or Plasma Bilirubin 0.0 - 0.2 mg/dL Normal No Nov 26 .direct informati 2017 2:35 [Mass/vol on in PM ume] in source Serum or data Plasma Bilirubin 0 - 0.9 mg/dL Normal No Nov 26 .indirect informati 2017 2:35 on in PM [Mass/vol source ume] in data Serum or Plasma Bilirubin 0.2 - 1.0 mg/dL Normal No Nov 26 .total informati 2017 2:35 [Mass/vol on in PM ume] in source Serum or data Plasma Aspartate 15 - 37 U/L Low No Nov 26 informati 2017 2:35 aminotran on in PM sferase source [Enzymati data c activity/ volume] in Serum or Plasma Alanine 12 - 78 U/L Normal No Nov 26 aminotran informati 2016 2:35 sferase on in PM [Enzymati source c data activity/ volume] in Serum or Plasma Protein 6.4 - 8.2 gm/dL Normal No Nov 26 [Mass/vol informati 2016 2:35 ume] in on in PM Serum or source Plasma data Blood group antibody screen [Presence] in Serum or Plasma Observa Value Referen Units Interpr Notes Date tion ce etation Range Blood POSITIV NEGATIV No Abnorma No Nov 26 group E E informa l informa 2016 antibod tion in tion in 2:35 PM y source source screen data data [Presen ce] in Serum or Plasma Direct antiglobulin test.unspecified reagent [Presence] on Red Blood Cells Observa Value Referen Units Interpr Notes Date tion ce etation Range Direct NEGATIV NEGATIV No No No Nov 26 antiglo E E informa informa informa 2016 bulin tion in tion in tion in 2:35 PM test.un source source source specifi data data data ed reagent [Presen ce] on Red Blood Cells Erythrocyte sedimentation rate by Westergren method Observa Value Referen Units Interpr Notes Date tion ce etation Range Erythrocy 0 - 30 mm/hr Normal No Nov 26 te informati 2016 2:35 sedimenta on in PM tion rate source by data Westergre n method Reticulocytes [#/volume] in Blood by Automated count Observa Value Referen Units Interpr Notes Date tion ce etation Range Reticuloc 0.9 - 3.2 % High No Nov 26 ytes informati 2016 2:35 [#/volume on in PM ] in source Blood by data Automated count Urinalysis dipstick W Reflex Microscopic panel in Urine Observa Value Referen Units Interpr Notes Date tion ce etation Range Appeara CLEAR CLEAR No No No Nov 26 nce of informa informa informa 2016 Urine tion in tion in tion in 2:35 PM source source source data data data Bilirub NEGATIV NEG No No No Nov 26 in E informa informa informa 2017 [Presen tion in tion in tion in 2:35 PM ce] in source source source Urine data data data by Test strip Erythro NEGATIV NEG No No No Nov 26 cytes E informa informa informa 2016 [Presen tion in tion in tion in 2:35 PM ce] in source source source Urine data data data Color YELLOW YELLOW No No No Nov 26 of informa informa informa 2016 Urine tion in tion in tion in 2:35 PM source source source data data data Glucose NEG No No No Nov 26 [Mass/vol informati informati informati 2016 2:35 ume] in on in on in on in PM Urine by source source source Test data data data strip Ketones NEGATIV NEG mg/dL No No Nov 26 E informa informa 2016 [Presen tion in tion in 2:35 PM ce] in source source Urine data data by Automat ed test strip Mucus TRACE NEG No Abnorma No Nov 26 [Presen informa l informa 2016 ce] in tion in tion in 2:35 PM Urine source source sedimen data data t by Light microsc opy Nitrite NEGATIV NEG No No No Nov 26 E informa informa informa 2016 [Presen tion in tion in tion in 2:35 PM ce] in source source source Urine data data data by Test strip pH of 5.0 - 8.5 No Normal No Nov 26 Urine informati informati 2017 2:35 on in on in PM source source data data Protein NEG mg/dL No No Nov 26 [Mass/vol informati informati 2017 2:35 ume] in on in on in PM Urine by source source Automated data data test strip Specific 1.005 - No Normal No Nov 26 gravity 1.030 informati informati 2017 2:35 of Urine on in on in PM source source data data Urobili 0.2 NEG E.U./dL No No Nov 26 nogen informa informa 2016 [Presen tion in tion in 2:35 PM ce] in source source Urine data data by Test strip Urinalysis dipstick W Reflex Microscopic panel in Urine Observa Value Referen Units Interpr Notes Date tion ce etation Range Appeara CLEAR CLEAR No No No Nov 26 nce of informa informa informa 2016 Urine tion in tion in tion in 2:35 PM source source source data data data Bacteri 3+ O No No No Nov 26 a informa informa informa 2016 [Presen tion in tion in tion in 2:35 PM ce] in source source source Urine data data data sedimen t by Light microsc opy Bilirub NEGATIV NEG No No No Nov 26 in E informa informa informa 2016 [Presen tion in tion in tion in 2:35 PM ce] in source source source Urine data data data by Test strip Erythro NEGATIV NEG No No No Nov 26 cytes E informa informa informa 2017 [Presen tion in tion in tion in 2:35 PM ce] in source source source Urine data data data Color YELLOW YELLOW No No No Nov 26 of informa informa informa 2017 Urine tion in tion in tion in 2:35 PM source source source data data data Glucose NEG No No No Nov 26 [Mass/vol informati informati informati 2017 2:35 ume] in on in on in on in PM Urine by source source source Test data data data strip Hyaline OCC NONE #/lpf No No Nov 26 casts informa informa 2016 [Presen tion in tion in 2:35 PM ce] in source source Urine data data sedimen t by Light microsc opy Ketones NEGATIV NEG mg/dL No No Nov 26 E informa informa 2016 [Presen tion in tion in 2:35 PM ce] in source source Urine data data by Automat ed test strip Mucus TRACE NEG No Abnorma No Nov 26 [Presen informa l informa 2016 ce] in tion in tion in 2:35 PM Urine source source sedimen data data t by Light microsc opy Mucus OCC OCC No No No Nov 26 [Presen informa informa informa 2016 ce] in tion in tion in tion in 2:35 PM Urine source source source sedimen data data data t by Light microsc opy Nitrite NEGATIV NEG No No No Nov 26 E informa informa informa 2016 [Presen tion in tion in tion in 2:35 PM ce] in source source source Urine data data data by Test strip pH of 5.0 - 8.5 No Normal No Nov 26 Urine informati informati 2017 2:35 on in on in PM source source data data Protein NEG mg/dL No No Nov 26 [Mass/vol informati informati 2017 2:35 ume] in on in on in PM Urine by source source Automated data data test strip Erythro NONE 0 rbc/hpf No No Nov 26 cytes informa informa 2016 [Presen tion in tion in 2:35 PM ce] in source source Urine data data sedimen t by Light microsc opy Specific 1.005 - No Normal No Nov 26 gravity 1.030 informati informati 2016 2:35 of Urine on in on in PM source source data data Epithel 20-50 0 - 5 #/hpf No No Nov 26 ial informa informa 2017 cells.s tion in tion in 2:35 PM quamous source source data data [Presen ce] in Urine sedimen t by Microsc opy high power field Urobili 0.2 NEG E.U./dL No No Nov 26 nogen informa informa 2016 [Presen tion in tion in 2:35 PM ce] in source source Urine data data by Test strip Leukocy [5 O wbc/hpf No No Nov 26 tiesha wbc/hpf informa informa 2016 [#/volu ; 10 tion in tion in 2:35 PM me] in wbc/hpf source source Urine ] data data Hemoglobin & Hematocrit panel in Blood Observa Value Referen Units Interpr Notes Date ti ce etation Range Hematocri 37.0 - % Low No Nov 26 t [Volume 47.0 informati 2016 on in 11:35 AM Fraction] source of Blood data Hemoglobi 12.2 - g/dL Low No Nov 26 n 16.2 informati 2016 [Mass/vol on in 11:35 AM ume] in source Blood data Blood product special preparation [Type] Observa Value Referen Units Interpr Notes Date ti ce etation Range Blood BLOOD No No No BLOOD Nov 26 product UNIT informa informa informa UNIT # 2017 RELEASE tion in tion in tion in : W0382 8:28 AM special source source source 17 data data data [id number] prepara RELEASE tion D [Type] Gregg Mendiola Blood product special preparation [Type] Observa Value Referen Units Interpr Notes Date tion ce etation Range Blood BLOOD No No No BLOOD Nov 25 product UNIT informa informa informa UNIT # 2017 RELEASE tion in tion in ti in : W0382 3:08 PM special source source source 17 data data data [id number] prepara RELEASE tion D [Type] 7Boyers ,Lucind aA POSITIV E Blood type & Crossmatch panel in Blood Observa Value Referen Units Interpr Notes Date ti ce etation Range Blood NEGATIV NEGATIV No No No Nov 25 group E E informa informa informa 2017 antibod tion in tion in tion in 10:25 y source source source AM screen data data data [Presen ce] in Serum or Plasma Rh POSITIV No No No No Nov 25 [Type] E informa informa informa informa 2017 in tion in tion in tion in tion in 10:25 Blood source source source source AM data data data data ABO A No No No No Nov 25 group informa informa informa informa 2016 [Type] tion in tion in tion in tion in 10:25 in source source source source AM Blood data data data data Blood type & Crossmatch panel in Blood Observa Value Referen Units Interpr Notes ti ce etation Range Major COMPAT No No No No Nov 25 crossma informa informa informa informa 2017 tch tion in tion in tion in tion in 10:25 [interp source source source source AM retatio data data data data n] Major COMPAT No No No No Nov 25 crossma informa informa informa informa 2017 tch tion in tion in tion in tion in 10:25 [interp source source source source AM retatio data data data data n] by Immedia te spin Blood type & Crossmatch panel in Blood Observa Value Referen Units Interpr Notes Date ti ce etation Range Major COMPAT No No No No Nov 25 crossma informa informa informa informa 2016 tch tion in tion in tion in tion in 10:25 [interp source source source source AM retatio data data data data n] Major COMPAT No No No No Nov 25 crossma informa informa informa informa 2017 tch tion in tion in tion in tion in 10:25 [interp source source source source AM retatio data data data data n] by Immedia te spin Hematocrit [Volume Fraction] of Blood Observa Value Referen Units Interpr Notes Date tion ce etation Range Hematocri 37.0 - % Low alert Nov 25 t [Volume 47.0 2017 CRITICAL 10:25 AM Fraction] RESULTS of Blood RESU LTS CALLED TO: BANDAR 11/25/16 1045 Darrin Husain Hemoglobin [Mass/volume] in Blood Observa Value Referen Units Interpr Notes Date tion ce etation Range Hemoglobi 12.2 - g/dL Low alert Nov 25 n 16.2 2016 [Mass/vol CRITICAL 10:25 AM ume] in RESULTS Blood RESU LTS CALLED TO: BANDAR 11/25/16 1045 Darrin Husain CBC W Auto Differential panel in Blood Observa Value Referen Units Interpr Notes etation Range Basophils 0 - 0.2 K/MM3 Normal No Nov 25 informati 2016 9:55 [#/volume on in AM ] in source Blood by data Automated count Basophils 0.1 - 2.0 % Normal No Nov 25 informati 2016 9:55 leukocyte on in AM s in source Blood by data Automated count Eosinophi 0.0 - 0.4 K/mm3 Normal No Nov 25 ls informati 2016 9:55 [#/volume on in AM ] in source Blood by data Automated count Eosinophi 0.1 - % Normal No Nov 25 ls/100 12.0 informati 2016 9:55 leukocyte on in AM s in source Blood by data Automated count Granulocy 1.8 - 7.8 K/mm3 High No Nov 25 tiesha informati 2016 9:55 [#/volume on in AM ] in source Blood by data Automated count Granulocy 37.0 - % Normal No Nov 25 tiesha/100 80.0 informati 2016 9:55 leukocyte on in AM s in source Blood by data Automated count Hematocri 37.0 - % Low alert Nov 25 t [Volume 47.0 2016 9:55 CRITICAL AM Fraction] RESULTS of Blood RESU LTS CALLED TO: VIRIDIANA.AT 11/25/16 1005 Darrin Husain e Hemoglobi 12.2 - g/dL Low alert Nov 25 n 16.2 2016 9:55 [Mass/vol CRITICAL AM ume] in RESULTS Blood RESU LTS CALLED TO: VIRIDIANA.AT 11/25/16 1005 Darrin Husain e Lymphocyt 0.7 - 4.5 K/mm3 Normal No Nov 25 es informati 2016 9:55 [#/volume on in AM ] in source Unspecifi data ed specimen by Automated count Lymphocyt 10 - 50.0 % Normal No Nov 25 es informati 2016 9:55 [#/volume on in AM ] in source Unspecifi data ed specimen by Automated count Erythrocy 27 - 31.2 pg Low No Nov 25 te mean informati 2016 9:55 corpuscul on in AM ar source hemoglobi data n [Entitic mass] Erythrocy 31.8 - g/dl Low No Nov 25 te mean 35.4 informati 2017 9:55 corpuscul on in AM ar source hemoglobi data n concentra tion [Mass/vol ume] by Automated count Erythrocy 82.2 - fl Low No Nov 25 te mean 97.8 informati 2016 9:55 corpuscul on in AM ar volume source [Entitic data volume] by Automated count Monocytes 0.1 - 1.0 K/mm3 Normal No Nov 25 informati 2016 9:55 [#/volume on in AM ] in source Blood by data Automated count Monocytes 1.7 - 9.3 % Normal No Nov 25 informati 2017 9:55 leukocyte on in AM s in source Blood by data Automated count Platelet 7.4 - fl Low No Nov 25 mean 10.4 informati 2017 9:55 volume on in AM [Entitic source volume] data in Blood by Automated count Platelets 142 - 424 K/mm3 High No Nov 25 informati 2017 9:55 [#/volume on in AM ] in source Blood data Erythrocy 4.2 - 5.4 M/mm3 Low No Nov 25 tiesha informati 2017 9:55 [#/volume on in AM ] in source Amniotic data fluid Erythrocy 11.5 - % High No Nov 25 te 17.5 inform2016 9:55 distribut on in AM ion width source [Entitic data volume] by Automated count Leukocyte 4.8 - K/MM3 Normal No Nov 25 s 10.8 2016 9:55 [#/volume on in AM ] in source Blood data Iron and TIBC Observa Value Referen Units Interpr Notes Date ti ce etation Range Iron 250 - 450 ug/dL No No Nov 11 binding informati 2016 capacity on in on in 11:38 AM [Mass/vol source source ume] in data data Serum or Plasma Iron 131 - 425 ug/dL No No Nov 11 binding informati inform2016 capacity. on in on in 11:38 AM unsaturat source source ed data data [Mass/vol ume] in Serum or Plasma Iron 27 - 159 ug/dL Low No Nov 11 [Mass/vol informati 2017 ume] in on in 11:38 AM Serum or source Plasma data Iron 15 - 55 % Low Performed Nov 11 saturatio at: CB 2016 n [Mass] - [facility] 11:38 AM in Serum or Plasma [place] [address] [address] [place], [place] [id number] [employer] Teacher: Jorge Guillen PhD, Phone: [phone] Ferritin [Mass/volume] in Serum or Plasma Observa Value Referen Units Interpr Notes etation Range Ferritin 8 - 388 ng/mL Normal No Nov 11 [Mass/vol inform2016 ume] in on in 11:38 AM Serum or source Plasma data CBC W Auto Differential panel in Blood Observa Value Referen Units Interpr Notes etation Range Basophils 0 - 0.2 K/MM3 Normal No Nov 11 inform2016 [#/volume on in 11:38 AM ] in source Blood by data Automated count Basophils 0.1 - 2.0 % Normal No Nov 11 / inform2016 leukocyte on in 11:38 AM s in source Blood by data Automated count Eosinophi 0.0 - 0.4 K/mm3 Normal No Nov 11 ls 2016 [#/volume on in 11:38 AM ] in source Blood by data Automated count Eosinophi 0.1 - % Normal No Nov 11 ls/100 12.0 2016 leukocyte on in 11:38 AM s in source Blood by data Automated count Granulocy 1.8 - 7.8 K/mm3 Normal No Nov 11 tiesha informati 2016 [#/volume on in 11:38 AM ] in source Blood by data Automated count Granulocy 37.0 - % Normal No Nov 11 tiesha/100 80.0 informati 2016 leukocyte on in 11:38 AM s in source Blood by data Automated count Hematocri 37.0 - % Low No Nov 11 t [Volume 47.0 informati 2016 on in 11:38 AM Fraction] source of Blood data Hemoglobi 12.2 - g/dL Low No Nov 11 n 16.2 informati 2016 [Mass/vol on in 11:38 AM ume] in source Blood data Lymphocyt 0.7 - 4.5 K/mm3 Normal No Nov 11 es informati 2016 [#/volume on in 11:38 AM ] in source Unspecifi data ed specimen by Automated count Lymphocyt 10 - 50.0 % Normal No Nov 11 es informati 2016 [#/volume on in 11:38 AM ] in source Unspecifi data ed specimen by Automated count Erythrocy 27 - 31.2 pg Low No Nov 11 te mean inform2016 corpuscul on in 11:38 AM ar source hemoglobi data n [Entitic mass] Erythrocy 31.8 - g/dl Low No Nov 11 te mean 35.4 informati 2016 corpuscul on in 11:38 AM ar source hemoglobi data n concentra tion [Mass/vol ume] by Automated count Erythrocy 82.2 - fl Low No Nov 11 te mean 97.8 informati 2016 corpuscul on in 11:38 AM ar volume source [Entitic data volume] by Automated count Monocytes 0.1 - 1.0 K/mm3 Normal No Nov 11 informati 2016 [#/volume on in 11:38 AM ] in source Blood by data Automated count Monocytes 1.7 - 9.3 % Normal No Nov 11 /100 informati 2016 leukocyte on in 11:38 AM s in source Blood by data Automated count Platelet 7.4 - fl Normal No Nov 11 mean 10.4 informati 2016 volume on in 11:38 AM [Entitic source volume] data in Blood by Automated count Platelets 142 - 424 K/mm3 Normal No Nov 11 informati 2016 [#/volume on in 11:38 AM ] in source Blood data Erythrocy 4.2 - 5.4 M/mm3 Normal No Srini 12 tiesha informati 2016 [#/volume on in 11:38 AM ] in source Amniotic data fluid Erythrocy 11.5 - % High No Oct 12 te 17.5 informati 2016 distribut on in 11:38 AM ion width source [Entitic data volume] by Automated count Leukocyte 4.8 - K/MM3 Normal No Oct 12 s 10.8 informati 2016 [#/volume on in 11:38 AM ] in source Blood data Blood type & Indirect antibody screen panel in Blood Observa Value Referen Units Interpr Notes Date tion ce etation Range Blood NEGATIV NEGATIV No No No Oct 8 group E E informa informa informa 2017 antibod tion in tion in tion in 10:15 y source source source AM screen data data data [Presen ce] in Serum or Plasma Rh POSITIV No No No No Nov 07 [Type] E informa informa informa informa 2017 in tion in tion in tion in tion in 10:15 Blood source source source source AM data data data data ABO A No No No No Oct 8 group informa informa informa informa 2017 [Type] tion in tion in tion in tion in 10:15 in source source source source AM Blood data data data data Activated partial thrombplastin time (aPTT) in Platelet poor plasma by Coagulation assay Observa Value Referen Units Interpr Notes Date tion ce etation Range Activated 23.6 - SECONDS Normal No Nov 07 partial 34.0 informati 2016 9:10 thrombpla on in AM stin time source (aPTT) data in Platelet poor plasma by Coagulati on assay Comprehensive metabolic 2000 panel in Serum or Plasma Observa Value Referen Units Interpr Notes Date tion ce etation Range Albumin/G 1.1 - 1.8 No Low No Oct 8 lobulin informati informati 2016 9:10 [Mass on in on in AM ratio] in source source Serum or data data Plasma Albumin 3.4 - 5.0 gm/dL Low No Nov 07 [Mass/vol informati 2016 9:10 ume] in on in AM Serum or source Plasma data Alkaline 46 - 116 U/L Normal No Nov 07 phosphata informati 2016 9:10 se on in AM [Enzymati source c data activity/ volume] in Serum or Plasma Bilirubin 0.2 - 1.0 mg/dL Normal No Oct 8 .total informati 2017 9:10 [Mass/vol on in AM ume] in source Serum or data Plasma Urea 7 - 18 mg/dL Normal No Oct 8 nitrogen informati 2017 9:10 [Mass/vol on in AM ume] in source Serum or data Plasma Calcium 8.5 - mg/dL Normal No Oct 8 [Mass/vol 10.1 informati 2017 9:10 ume] in on in AM Serum or source Plasma data Chloride 98 - 107 mmoL/L Normal No Srini 8 [Moles/vo informati 2017 9:10 lume] in on in AM Serum or source Plasma data Carbon 21.0 - mmoL/L Normal No Oct 8 dioxide, 32.0 informati 2017 9:10 total on in AM [Moles/vo source lume] in data Serum or Plasma Creatinin 0.55 - mg/dL Normal No Oct 8 e 1.02 informati 2017 9:10 [Mass/vol on in AM ume] in source Serum or data Plasma Creatinin 50 - 200 ML/MIN Normal No Oct 8 e renal informati 2017 9:10 clearance on in AM source predicted data by Cockcroft -Gault formula Estimated 59- ML/MIN Low REFERENCE Nov 07 RANGE: 2017 9:10 glomerula >60 AM r ML/MIN/1. filtratio 73 SQUARE n rate METERSIf (GF this patient is -A merican, then multiply theresult by 1.210. Globulin 1.3 - 3.2 gm/dL High No Nov 07 [Mass/vol informati 2017 9:10 ume] in on in AM Serum source data Glucose 74 - 106 mg/dL Normal No Oct 8 [Mass/vol informati 2016 9:10 ume] in on in AM Serum or source Plasma data Potassium 3.5 - 5.1 mmoL/L Normal No Nov 07 informati 2017 9:10 [Moles/vo on in AM lume] in source Serum or data Plasma Sodium 136 - 145 mmoL/L Normal No Oct 8 [Moles/vo informati 2017 9:10 lume] in on in AM Serum or source Plasma data Aspartate 15 - 37 U/L Low No Nov 07 informati 2017 9:10 aminotran on in AM sferase source [Enzymati data c activity/ volume] in Serum or Plasma Alanine 12 - 78 U/L Normal No Nov 07 aminotran informati 2017 9:10 sferase on in AM [Enzymati source c data activity/ volume] in Serum or Plasma Protein 6.4 - 8.2 gm/dL Normal No Nov 07 [Mass/vol informati 2016 9:10 ume] in on in AM Serum or source Plasma data CBC W Auto Differential panel in Blood Observa Value Referen Units Interpr Notes Date tion ce etation Range Basophils 0 - 0.2 K/MM3 Normal No Nov 07 informati 2016 9:10 [#/volume on in AM ] in source Blood by data Automated count Basophils 0.1 - 2.0 % Normal No Nov 07 informati 2016 9:10 leukocyte on in AM s in source Blood by data Automated count Eosinophi 0.0 - 0.4 K/mm3 Normal No Nov 07 ls informati 2016 9:10 [#/volume on in AM ] in source Blood by data Automated count Eosinophi 0.1 - % Normal No Nov 07 ls/100 12.0 informati 2016 9:10 leukocyte on in AM s in source Blood by data Automated count Granulocy 1.8 - 7.8 K/mm3 Normal No Nov 07 tiesha informati 2016 9:10 [#/volume on in AM ] in source Blood by data Automated count Granulocy 37.0 - % Normal No Nov 07 tiesha/100 80.0 informati 2016 9:10 leukocyte on in AM s in source Blood by data Automated count Hematocri 37.0 - % Low alert Nov 07 t [Volume 47.0 2016 9:10 CRITICAL AM Fraction] RESULTS of Blood RESU LTS CALLED TO: GUILLERMO 11/07/16 09Darrin Rey CRITICAL RESULTS RESU LTS CALLED TO: GUILELRMO 11/07/16 0937 Darrin Husain Hemoglobi 12.2 - g/dL Low alert Nov 07 n 16.2 2016 9:10 [Mass/vol CRITICAL AM ume] in RESULTS Blood RESU LTS CALLED TO: EAL 11/07/16 0923 Darrin Husain Lymphocyt 0.7 - 4.5 K/mm3 Normal No Oct 8 es informati 2017 9:10 [#/volume on in AM ] in source Unspecifi data ed specimen by Automated count Lymphocyt 10 - 50.0 % Normal No Oct 8 es informati 2016 9:10 [#/volume on in AM ] in source Unspecifi data ed specimen by Automated count Erythrocy 27 - 31.2 pg Low No Oct 8 te mean informati 2017 9:10 corpuscul on in AM ar source hemoglobi data n [Entitic mass] Erythrocy 31.8 - g/dl Low No Nov 07 te mean 35.4 informati 2017 9:10 corpuscul on in AM ar source hemoglobi data n concentra tion [Mass/vol ume] by Automated count Erythrocy 82.2 - fl Low No Nov 07 te mean 97.8 informati 2017 9:10 corpuscul on in AM ar volume source [Entitic data volume] by Automated count Monocytes 0.1 - 1.0 K/mm3 Normal No Oct 8 informati 2017 9:10 [#/volume on in AM ] in source Blood by data Automated count Monocytes 1.7 - 9.3 % Normal No Oct 8 /100 informati 2017 9:10 leukocyte on in AM s in source Blood by data Automated count Platelet 7.4 - fl Low No Oct 8 mean 10.4 informati 2017 9:10 volume on in AM [Entitic source volume] data in Blood by Automated count Platelets 142 - 424 K/mm3 Normal No Oct 8 informati 2017 9:10 [#/volume on in AM ] in source Blood data Erythrocy 4.2 - 5.4 M/mm3 Low No Oct 8 tiesha informati 2017 9:10 [#/volume on in AM ] in source Amniotic data fluid Erythrocy 11.5 - % High No Oct 8 te 17.5 informati 2017 9:10 distribut on in AM ion width source [Entitic data volume] by Automated count Leukocyte 4.8 - K/MM3 Normal No Oct 8 s 10.8 informati 2016 9:10 [#/volume on in AM ] in source Blood data
--- OUTSIDE RECORDS SUMMARY | 2017-01-15 06:19 | External Medical Summary Rpt ---
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 or SPECIME Plasma N SENT TO [facility] REFEREN CE LAB FOR [...] rs <5.6Perfo rmed at: CB - [facility] [id number] [place], [place] [id number] Aeronautical Test Engineer: Jorge Guillen PhD, Phone: [phone] Urea nitrogen [Mass/volume] in Serum or [...] source source source 17 data data data [id number] prepara RELEASE tion D [Type] 7GGregg vee [...] clinical deficienc y.Perform ed at: - [facility] [id number] [place], [place] [id number] Aeronautical Test Engineer: Jorge Guillen PhD, Phone: [phone] Haptoglobin [Mass/volume] in Serum or Plasma Observa Value Referen Units Interpr Notes Date tion ce etation Range Haptoglob 34 - 200 mg/dL No Nov 27 in informati at: CB 2017 [Mass/vol on in - [facility] 12:27 PM ume] in source Serum or data [id number] Plasma [address] [place], [place] [id number] Aeronautical Test Engineer: Jorge Guillen PhD, Phone: [phone] CBC W Auto Differential panel in [...] ------- ------- ------- ------- -Speckl ed Sm, PROGRAM OR PROJECT ADMINISTRATOR, SCL-70, SLE,MCT D,PSS (diffus e form),S S-A/SS- [...] ------- ------- ------- ------- -Perfor med at: [facility] [place] [id number]Lab Directo r: Jorge Frank ti PhD, Phone: [phone] [facility] IBillionaire . No High No Nov 26 Ab [...] [facility] PM [Mass/vol source ume] in data [id number] Serum [address] [place], [place] [id number] Aeronautical Test Engineer: Jorge Guillen PhD, Phone: [phone] Cold agglutinin [Titer] in Serum or Plasma by Agglutination Observa Value Referen Units Interpr Notes Date tion ce etation Range Cold Neg <1:32 No No Performed Nov 26 agglutini informati informati at: BN 2017 2:35 n [Titer] on in on in - [facility] PM in Serum source source or data data [facility] Plasma by [address], [place], [place] [id number] Aeronautical Test Engineer: Hugo Leigh MD, Phone: [phone] Folate [Mass/volume] in Serum or Plasma Observa Value Referen Units Interpr Notes Date tion ce etation Range Folate >3.0 ng/mL No A serum Nov 26 [Mass/vol informati folate 2017 2:35 ume] in on in concentra PM Serum or source tion of Plasma data less than 3.1 ng/mL isconside red to represent clinical deficienc y.Perform ed at: CB - [facility] [id number] [place], [place] [id number] Aeronautical Test Engineer: Jorge Guillen PhD, Phone: [phone] Haptoglobin [Mass/volume] in Serum or Plasma Observa Value Referen Units Interpr Notes Date tion ce etation Range Haptoglob 34 - 200 mg/dL No Performed Nov 26 in informati at: CB 2016 2:35 [Mass/vol on in - [facility] PM ume] in source Serum or data [place] [address] Plasma [address] [place], [place] [id number] Aeronautical Test Engineer: Jorge Guillen PhD, Phone: [phone] [id number] dehydrogenase [Enzymatic activity/volume] in Red Blood Cells [...] source source source 17 data data data [id number] prepara RELEASE tion D [Type] Gregg Mendiola Blood product special preparation [Type] Observa Value Referen Units Interpr Notes Date tion ce etation Range Blood BLOOD No No No BLOOD Nov 25 product UNIT informa informa informa UNIT # 2017 RELEASE tion in tion in ti in : W0382 3:08 PM special source source source 17 data data data [id number] prepara RELEASE tion D [Type] 7Boyers ,Lucind [...] [facility] 11:38 AM in Serum or Plasma [address] [address] [address] [place], [place] [id number] Aeronautical Test Engineer: Jorge Guillen PhD, Phone: [phone] Ferritin [Mass/volume] in Serum or Plasma [...] Rey CRITICAL RESULTS RESU LTS CALLED TO: GUILLERMO 11/07/16 0937 Darrin Husain Hemoglobi 12.2 - [...]
[2017-01-15 09:27] LABS: ABO BLOOD TYPE A; RH BLOOD TYPE POSITIVE
--- NOTE | 2017-01-15 10:01 | Anesthesia Record ---
Anesthesia Record Part I Total IV fluids: 3500 EBL (ml): 550 Urine Output: 700 B/P: 108/66 % SaO2: 95 Pulse: 82 Resps: 12 Temp: 98.4 Patient is: Awake, Stable Stable to PACU at: 1000 at 1001
--- NOTE | 2017-01-15 10:02 | Anesthesia Record ---
Anesthesia Record Part II Discharge time: 1030 Destination: Second Floor PACU nurse assessment review? Yes Patient is: Awake, Stable Anesthesia complications? No at 1001
--- NOTE | 2017-01-15 10:32 | Operative Note ---
Surgeon/Diagnoses Surgeon/Bale Sewer(s) Date of procedure: 01/15/17 Surgeon: MD Jagdish Santos Bale Sewer(s): Dr. Angela Diagnoses Pre-op diagnosis: RIGHT colon cancer with possible contained perforation Post-op diagnosis RIGHT colon cancer with invasion of the duodenum and involvement of the distal small bowel Procedure Procedure Procedure: RIGHT colectomy with partial small bowel resection Indications: JENINFER YANES is a 51 year-old Female with a history of RIGHT colon cancer as noted on recent barium enema. She was being evaluated for severe anemia and scheduled for colonoscopy. She had a reaction to blood transfusion with concomitant febrile changes leading to postponement of her colonoscopy. Further evaluation in addition BE included a CT scan that showed possible localized/ contained perforation with possible small bowel involvement. Findings: Small focal invasion of mid/distal small bowel medially Invasion into the duodenal wall Procedure Description: After informed consent was obtained, the patient was taken to the operating room and placed in the supine position. General anesthesia was induced and her abdomen was prepped and draped in a sterile fashion. A midline incision was made. Electrocautery was utilized to transect through the subcutaneous fat. The fascia was elevated as a combination of cautery and sharp dissection was utilized to enter the abdomen. Evaluation revealed a large palpable mass consistent with the known diagnosis of right-sided colon cancer. Continued dissection along the lateral margin revealed abutment into the duodenal wall. Careful dissection with electrocautery and "finger fracture" was utilized to continue elevation. As the mass was elevated dissection was taken along the distal end and medial margins. Obvious involvement of a focal mid/distal section of small bowel was noted and the decision was made to take this small bowel with the specimen. The small bowel was transected utilizing a BLOSSOM stapler both proximally and distally. The mesentery was taken with Enseal. The colonic mesentery was then taken utilizing the Enseal device as the specimen was elevated. Careful attention to the duodenum revealed wall perforation/ involvement. The decision was made to transfer the patient to a tertiary care center for further surgical management with regard to the significant duodenal involvement. 3-0 Nurolon was utilized to reapproximate/close the duodenal opening in a running fashion. The mid/distal small bowel resection site was carefully elevated and a staple anastomosis was completed. The decision was made to forego anastomosis of her colon to ileum secondary to need for further surgical intervention at a tertiary care center. Her fascia was closed with running Nurolon in her skin was closed with neha. Dressings were applied and she was transferred to recovery in stable condition. EBL (ml): 250 Anesthesia: GETA Complications: No immediate Specimens: RIGHT colon with attached section of/distal small bowel Disposition Disposition: Stable to recovery from where she will be transferred to a tertiary care center for further surgical management. Dr. Kyaw Torres from [facility] has accepted the patient in transfer. at 1031
--- NOTE | 2017-01-15 11:28 | Discharge Summary Report ---
General Admit date: 01/15/17 Discharge date: 01/15/17 Admission Dx: Right colon cancer Discharge Dx: same Hospital course: The patient was admitted preoperatively for RIGHT hemicolectomy. Intraoperative findings revealed involvement of the duodenal wall with concomitant duodenal defect. Please see operative report for detail. The decision was made to transfer to a tertiary care center secondary to need for more involved proximal bowel resection. Accepting physician: Dr. Kyaw Torres - [facility] Problem List Medical Problems Anemia Degenerative disc disease, cervical Degenerative disc disease, lumbar Iron deficiency anemia due to dietary causes Stroke Allergies Coded Allergies: No Known Allergies (01/15/17) Med Rec DC summary Medications Reported Medications MULTIVITAMIN (Multiple Vitamins) 1 TAB PO DAILY CHOLECALCIFEROL (VITAMIN D3) (Vitamin D) 1,000 IUNITS PO DAILY Propranolol Hcl 40 MG PO Q6HP PRN HEADACHE Atorvastatin Calcium (Atorvastatin) 20 MG PO DAILY CLOPIDOGREL BISULFATE (PLAVIX) 75 MG PO DAILY Txs and Procedures Treatments and Procedures: RIGHT colectomy (please see operative report for detail) Labs: Laboratory Tests 01/15/17 0850: Antibody Screen NEGATIVE, Miscellaneous Test POSITIVE at 1126
--- OUTSIDE RECORDS SUMMARY | 2017-01-15 13:41 | External Medical Summary Rpt ---
Author Author , ANNELIESE COY Address Unknown Phone [email or web address] Purpose Continuity of Care Document - 11-07-2016 through 2016 Problems Code Diagnosis DOS Provider Status D50.8 OTHER IRON DEFICIENCY ANEMIAS D64.9 ANEMIA, UNSPECIFIED I63.9 CEREBRAL INFARCTION, UNSPECIFIED Results Labs Lab Lab Date Result Refere Interp Status Commen Order Detail nces retati t Range on Blood type & Crossmatch panel in Blood (01-15-2017 08:50) Blood NEGATIV NEGATIV complet group 017 E E ed antibod 08:50 y screen [Presen ce] in Serum or Plasma Rh POSITIV complet [Type] 017 E ed in 08:50 Blood ABO A complet group 017 ed [Type] 08:50 in Blood Blood product special preparation [Type] (01-12-2017 17:30) [...] sedimen t by Light microsc opy Mucus OCC OCC complet [Presen 017 ed ce] in 14:35 Urine sedimen t by Light microsc opy Nitrite NEGATIV NEG complet 017 E ed [Presen 14:35 ce] in Urine by Test strip Erythro NONE 0 complet cytes 017 ed [Presen 14:35 ce] in Urine sedimen t by Light microsc opy Epithel 20-50 0#/hp complet ial 017 f - [...] [interp retatio n] by Immedia te spin Hgb A1c MFr Bld (11-08-2016 02:39) Hgb A1c 6.2 % 4.7-6.0 complet MFr 017 ed Bld 02:39 TSH SerPl DL<=0.005 mIU/L-aCnc (11-08-2016 02:39) TSH 1.78 0.4-4.2 complet SerPl 017 uIU/mL ed DL<=0.0 02:39 05 mIU/L-a Cnc Magnesium SerPl-mCnc (11-08-2016 02:39) Magnesi 2.0 1.9-2.4 complet um 017 mg/dL ed SerPl-m 02:39 Cnc Ferritin SerPl-mCnc (11-07-2016 20:54) Ferriti 5 ng/mL 13-150 complet n 017 ed [...]
--- OUTSIDE RECORDS SUMMARY | 2017-01-15 13:41 | External Medical Summary Rpt ---
Author Author , ANNELIESE COY Address Unknown Phone [email or web address] Purpose Continuity of Care Document - 11-07-2016 [...]
--- OUTSIDE RECORDS SUMMARY | 2017-01-15 13:41 | External Medical Summary Rpt ---
Demographics Preferred Language French Marital Status Unknown [facility] Affiliation Unknown Race Unknown Ethnic Group Unknown Author Author HERBIE Address Unknown Phone Immunization No patient found.
--- OUTSIDE RECORDS SUMMARY | 2017-01-15 13:41 | External Medical Summary Rpt ---
Demographics Preferred Language Nicaraguan Marital Status Unknown [facility] Affiliation Unknown Race Unknown Ethnic Group Unknown Author Author HERBIE Address Unknown Phone Immunization No patient found.
--- OUTSIDE RECORDS SUMMARY | 2017-01-15 13:43 | External Medical Summary Rpt ---
Author Author ANNELIESE Jemal, [employer] Organization [employer] Address Unknown Phone Unavailable Results Blood type & Crossmatch panel in Blood Observa Value Referen Units Interpr Notes Date ti ce etation Range Blood NEGATIV NEGATIV No No No Jan 15 group E E informa informa informa 2016 antibod tion in in in 8:50 AM y source source source screen data data data [Presen ce] in Serum or Plasma Rh POSITIV No No No No Jan 15 [Type] E informa informa informa informa 2017 in ti in in in in 8:50 AM Blood source source source source data data data data ABO A No No No No Jan 15 group informa informa informa informa 2017 [Type] tion in in ti in in 8:50 AM in source source source source Blood data data data data Choriogonadotropin [Units/volume] in Serum or Plasma Observa Value Referen Units Interpr Notes ce etation Range 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: PREOP ORDER Choriogon NEG No No Sena Jan 15 adotropin informati informati 2017 6:50 on in on in AM [Units/vo source source lume] in data data Serum or Plasma Hemoglobin & Hematocrit panel in Blood Observa Value Referen Units Interpr Notes ce etation Range Hematocri 37.0 - % Low No Jan 13 t [Volume 47.0 informati 2016 on in 10:16 AM Fraction] source of Blood data Hemoglobi 12.2 - g/dL Low No Jan 13 n 16.2 informati 2016 [Mass/vol on in 10:16 AM ume] in source Blood data Blood product special preparation [Type] Observa Value Referen Units Interpr Notes Date ce etation Range Blood BLOOD No No No BLOOD Jan 12 product UNIT informa informa informa UNIT # 2017 RELEASE ti in in in : W0382 5:30 PM special source source source 17 data data data [id number] prepara RELEASE tion D [Type] 7 1730Spa rks,Lc nO POSITIV E Blood product special preparation [Type] Observa Value Referen Units Interpr Notes Date tion ce etation Range Blood BLOOD No No No BLOOD Jan 12 product UNIT informa informa informa UNIT # 2017 RELEASE tion in in in : W0382 3:02 PM special source source source 17 data data data [id number] prepara RELEASE tion D [Type] 7NowalterR cecyardO POS Hemoglobin & Hematocrit panel in Blood Observa Value Referen Units Interpr Notes Date tion ce etation Range 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: POST BLOOD TO BE DRAWN AT 1455 Hematocri 37.0 - % Low No Jan 11 t [Volume 47.0 informati 2017 3:02 on in PM Fraction] source of Blood data Hemoglobi 12.2 - g/dL Low No Dec 12 n 16.2 informati 2017 3:02 [Mass/vol on in PM ume] in source Blood data Blood product special preparation [Type] Observa Value Referen Units Interpr Notes Date tion ce etation Range Blood BLOOD No No No BLOOD Jan 11 product UNIT informa informa informa UNIT # 2017 RELEASE tion in tion in tion in : W0382 12:17 special source source source 17 PM data data data [id number] prepara [id number] tion LEASED [Type] 7 O'Kirt, Heena Blood product special preparation [Type] Observa Value Referen Units Interpr Notes Date tion ce etation Range Blood BLOOD No No No BLOOD Jan 11 product UNIT informa informa informa UNIT # 2017 RELEASE tion in in tion in : W0382 10:28 special source source source 17 AM data data data [id number] prepara [id number] tion LEASED [Type] 7O'Kirt ,Jennifer n Blood type & Crossmatch panel in Blood Observa Value Referen Units Interpr Notes Date tion ce etation Range Major COMPAT No No No No Dec 11 crossma informa informa informa informa 2017 tch [...] tion in tion in tion in in 9:18 AM [interp source source [...] ANTI-E. or SPECIME Plasma N SENT TO [facility] LAB FOR FURTHER TESTING ANDANTI GEN NEGATIV E UNITS. Rh POSITIV No No No No Jan 10 [Type] E informa informa informa informa 2016 in tion in tion in tion in tion in 9:18 AM Blood source source source source data data data data ABO A No No No No Jan 10 group informa informa informa informa 2017 [Type] [...] in RESULTS Blood RESU LTS CALLED TO: VIRIDIANA.MICHELLE 01/10/17 0948Meule Dyan mendez Reticulocytes [#/volume] in Blood by Automated count Observa Value Referen Units Interpr Notes Date ce etation Range Reticuloc 0.9 - 3.2 % High No Jan 01 ytes informati 2016 [#/volume on in 11:51 AM ] in source Blood by data Automated count INR in Blood by Coagulation assay Observa Value Referen Units Interpr Notes Date ti ce etation Range INR in 0.9 - [...] No Jan 01 in time 11.8 informati 2017 (PT) in on in 11:51 AM Platelet source poor data plasma by Coagulati on assay Activated partial thrombplastin time (aPTT) in Platelet poor plasma by Coagulation assay Observa Value Referen Units Interpr Notes Date tion ce etation Range Activated 23.6 - SECONDS High RESULTS Jan 01 partial 34.0 CALLED TO 2017 thrombpla 11:51 AM stin time PHARMACIS (aPTT) T: HUSSAIN in Platelet H001/01/17 poor 1301 plasma by Melodie Posey Coagulati on assay Choriogonadotropin [Units/volume] in Serum or [...] Interpr Notes Date ti ce etation Range Carcinoem 0.0 - 4.7 ng/mL High Meryl Dec 19 bryonic ECLIA 2017 Ag methodolo 12:49 PM [Mass/vol gy ume] in Nonsmoker Serum or s Plasma <3.9Smoke rs <5.6Perfo rmed at: - [facility] [address] [id number] Automation Test Developer: Jorge Guillen PhD, Phone: [phone] Urea nitrogen [Mass/volume] in Serum or [...] No Dec 18 t [Volume 47.0 informati 2017 on in 11:40 AM Fraction] source of [...] informa UNIT # 2017 RELEASE tion in ti in in : W0382 9:27 AM special source source source 17 data data data [id number] prepara RELEASE tion D [Type] 7GGregg vee POSITIV E ANTI-E, ANTI-FY A Blood group antibody screen [Presence] in Serum or Plasma Observa Value Referen Units Interpr Notes Date ti ce etation Range Blood POSITIV NEGATIV No [...] Value Referen Units Interpr Notes Date ti etation Range Major COMPATI COMP No No No Dec 18 crossma BLE informa informa informa 2017 tch.re- tion in tion in tion in crossma source source source [facility] data data data [interp retatio n] Blood type & Crossmatch panel in Blood Observa Value Referen Units Interpr Notes Date ti ce etation Range Blood COMPATI No No No No Dec 18 type & BLE informa informa informa informa 2017 Crossma tion in tion in tion in tion in [facility] source source source source panel data data data data in Blood Hematocrit [Volume Fraction] of Blood Observa Value Referen Units Interpr Notes Date ti ce etation Range Hematocri 37.0 - % Low No Dec 18 t [Volume 47.0 informati 2017 on in Fraction] source of Blood data HCT POST-TRANSFUSION RX Observa Value Referen Units Interpr Notes Date ti ce etation Range HCT 27.4 37.7 - No Low No Dec 18 POST-TR 47.9 informa informa 2016 ANSFUSI tion in ti in ON RX source source data data Hemoglobin [Mass/volume] in Blood Observa Value Referen Units Interpr Notes Date ti ce etation Range Hemoglobi 12.2 - g/dL Low alert Dec 18 n 16.2 2016 [Mass/vol CRITICAL ume] in RESULTS Blood RESU LTS CALLED TO: CAITY @0943 12/18/16 BY LAB.[facility] [address] Hemoglobin [Mass/volume] in Blood Observa Value Referen Units Interpr Notes Date ti ce etation Range Hemoglobi 12.2 - No Low No Dec 18 n 16.2 informati informati 2016 [Mass/vol on in on [...] Bilirubin 0.2 - 1.0 No Normal No Osmany 19 .total informati informati 2017 [Mass/vol on in on in ume] in source source Serum or data data Plasma TRANSFUSION RX WORKUP Observa Value Referen Units Interpr Notes Date ti ce etation Range Direct POSITIV NEGATIV No No Dec 17 antiglo E E informa informa 2016 bulin ti in in 11:40 test.un source source AM specifi data data ed reagent [Presen ce] on Red Blood Cells Direct POSITIV NEGATIV No Abnorma No Dec 17 antiglo E E informa l informa 2016 bulin tion in ti in 11:40 test.un source source AM specifi data data ed reagent [Presen ce] on Red Blood Cells --after transfu mary Rh POSITIV No No No No Dec 17 [Type] E informa informa informa informa 2016 in tion in in in in 11:40 Blood source source source source AM data data data data Rh POSITIV No No No No Dec 17 [Type] E informa informa informa informa 2016 in ti in in in ti in 11:40 Blood-- source source source source AM after data data data data transfu mary reactio n ABO A No No No No Dec 17 group informa informa informa informa 2016 [Type] tion in ti in in in 11:40 in source source source source AM Blood data data data data ABO A No No No No Dec 17 group informa informa informa informa 2016 [Type] tion in in in in 11:40 in source source source source AM Blood-- data data data data after transfu mary reactio n Blood type & Crossmatch panel in Blood Observa Value Referen Units Interpr Notes Date tion ce etation Range Hold? N Transfuse now? 2 UNITS NOW Blood POSITIV NEGATIV No Abnorma No Dec 17 group E E informa l informa 2016 antibod tion in in 10:55 y source source AM screen data data [Presen ce] in Serum or Plasma Rh POSITIV No No No No Dec 17 [Type] E informa informa informa informa 2016 in tion in in in in 10:55 Blood source source source source AM data data data data ABO A No No No No Dec 17 group informa informa informa informa 2017 [Type] tion in tion in tion in tion in 10:55 in source source source source [...] Interpr Notes Date ti ce etation Range Basophils 0 - 0.2 K/MM3 Normal No Dec 17 informati 2016 9:25 [#/volume on in AM ] in source Blood by data Automated count Basophils 0.1 - 2.0 % Normal No Dec 17 informati 2016 9:25 leukocyte on in AM s in source Blood by data Automated count Eosinophi 0.0 - 0.4 K/mm3 Normal No Dec 17 ls informati 2016 9:25 [#/volume on in AM ] in source Blood by data Automated count Eosinophi 0.1 - % Normal No Dec 17 ls/100 12.0 informati 2016 9:25 leukocyte on in AM s in source Blood by data Automated count Granulocy 1.8 - 7.8 K/mm3 Normal No Dec 17 tiesha informati 2016 9:25 [#/volume on in AM ] in source Blood by data Automated count Granulocy 37.0 - % Normal No Dec 17 tiesha/100 80.0 informati 2017 9:25 leukocyte on in AM [...] 50.0 % Normal No Dec 17 es inform2016 9:25 [#/volume on in AM ] in source Unspecifi data ed specimen by Automated count Erythrocy 27 - 31.2 pg Low No Dec 17 te mean informati 2016 9:25 corpuscul on in AM ar source hemoglobi data n [Entitic mass] Erythrocy 31.8 - g/dl Low No Dec 17 te mean 35.4 informati 2016 9:25 corpuscul on in AM ar source hemoglobi data n concentra tion [Mass/vol ume] by Automated count Erythrocy 82.2 - fl Low Dec 17 te mean 97.8 informati 2016 9:25 corpuscul on in AM ar volume source [Entitic data volume] by Automated count Monocytes 0.1 - 1.0 K/mm3 Normal No Dec 17 informati 2016 9:25 [#/volume on in AM ] in source Blood by data Automated count Monocytes 1.7 - 9.3 % Normal No Dec 17 / informati 2016 9:25 leukocyte on in AM s in source Blood by data Automated count Platelet 7.4 - fl Low Dec 17 mean 10.4 informati 2016 9:25 volume on in AM [Entitic source volume] data in Blood by Automated count Platelets 142 - 424 K/mm3 No No Dec 17 informati informati 2016 9:25 [#/volume on in on in AM ] in source source Blood data data Erythrocy 4.2 - 5.4 M/mm3 Low No Dec 17 tiesha 2016 9:25 [#/volume on in AM ] in source Amniotic data fluid Erythrocy 11.5 - % High No Dec 17 te 17.5 informati 2016 9:25 distribut on in AM ion width source [Entitic data volume] by Automated count Leukocyte 4.8 - K/MM3 Normal No Dec 17 s 10.8 2016 9:25 [#/volume on in AM ] in source Blood data Blood type & Crossmatch panel in Blood Observa Value Referen Units Interpr Notes Date ti ce etation Range Hold? N Transfuse now? 2 UNITS NOW Blood POSITIV NEGATIV No Abnorma No Dec 09 group E E informa l inform2016 antibod tion in tion in 11:40 y [...] Dec 09 group informa informa informa informa 2016 [Type] tion in tion in tion in tion in 11:40 in source source source source AM Blood data data data data CBC W Auto Differential panel in Blood Observa Value Referen Units Interpr Notes Date ti ce etation Range SPECIMEN COMMENT: ORDERED FOR TEST SCHEDULED ON 12/12 Basophils 0 - 0.2 K/MM3 Normal No Dec 092016 [#/volume on in 11:40 AM ] in source Blood by data Automated count Basophils 0.1 - 2.0 % Normal No Dec 092016 leukocyte on in 11:40 AM s in source Blood by data Automated count Eosinophi 0.0 - 0.4 K/mm3 Normal No Dec 09 ls 2016 [#/volume on in 11:40 AM ] in source Blood by data Automated count Eosinophi 0.1 - % Normal No Dec 09 ls/100 12.0 2016 leukocyte on in 11:40 AM s in source Blood by data Automated count Granulocy 1.8 - 7.8 K/mm3 Normal No Dec 09 tiesha informati 2016 [#/volume on in 11:40 AM ] in source Blood by data Automated count Granulocy 37.0 - % Normal No Dec 09 tiesha/100 80.0 2016 leukocyte on in 11:40 AM s in source Blood by data Automated count Hematocri 37.0 - % Low Dec 09 t [Volume 47.0 ati 2016 on in 11:40 AM Fraction] source of Blood data Hemoglobi 12.2 - g/dL Low No Dec 09 n 16.2 informati 2016 [Mass/vol on in 11:40 AM ume] in source Blood data Lymphocyt 0.7 - 4.5 K/mm3 Normal No Dec 09 es inform2016 [#/volume on in 11:40 AM ] in source Unspecifi data ed specimen by Automated count Lymphocyt 10 - 50.0 % Normal No Dec 09 es 2016 [#/volume on in 11:40 AM ] in source Unspecifi data ed specimen by Automated count Erythrocy 27 - 31.2 pg Low No Dec 09 te mean 2016 corpuscul on in 11:40 AM ar [...] 0.1 - 1.0 K/mm3 Normal No Dec 092016 [#/volume on in 11:40 AM ] in source Blood by data Automated count Monocytes 1.7 - 9.3 % Normal No Dec 092016 leukocyte on in 11:40 AM s in source Blood by data Automated count Platelet 7.4 - fl Low Dec 09 mean 10.4 2016 volume on in 11:40 AM [Entitic source volume] data in Blood by Automated count Platelets 142 - 424 K/mm3 High No Dec 09 inform2016 [#/volume on in 11:40 AM ] in source Blood data Erythrocy 4.2 - 5.4 M/mm3 Low No Dec 09 tiesha inform2016 [#/volume on in 11:40 AM ] in source Amniotic data fluid Erythrocy 11.5 - % High No Dec 09 te 17.5 inform2016 distribut on in 11:40 AM ion width [...] No No Nov 27 (Vitamin informati informati 2017 B12) on in on in 12:27 PM [...] ug/dL No No Nov 27 binding informati inform2016 capacity. on in on in 12:27 PM unsaturat source source ed data data [Mass/vol ume] in Serum or Plasma Iron 27 - 159 ug/dL Low No Nov 27 [Mass/vol informati 2016 ume] in on in 12:27 PM Serum or source Plasma data Iron 15 - 55 % Low No Nov 27 saturatio 2016 n [Mass] on in 12:27 PM in Serum source or Plasma data Folate [Mass/volume] in Serum or Plasma Observa Value Referen Units Interpr Notes Date tion ce etation Range Folate >3.0 ng/mL No A serum Nov 27 [Mass/vol informati folate 2016 ume] in on in concentra 12:27 PM Serum or source tion of Plasma data less than 3.1 ng/mL isconside red to represent clinical deficienc y.Perform ed at: CB - [facility] [address] [place], [place] [id number] Automation Test Developer: Jorge Guillen PhD, Phone: [phone] Haptoglobin [Mass/volume] in Serum or Plasma Observa Value Referen Units Interpr Notes Date tion ce etation Range Haptoglob 34 - 200 mg/dL No Performed Nov 27 in informati at: CB 2016 [Mass/vol on in - [facility] 12:27 PM ume] in source Serum or data [id number] Plasma [address] [place], [place] [id number] Automation Test Developer: Jorge Guillne PhD, Phone: [phone] CBC W Auto Differential panel in Blood Observa Value Referen Units Interpr Notes Date tion ce etation Range Basophils 0 - 0.2 K/MM3 Normal No Nov 272016 [#/volume on in 12:27 PM ] in source Blood by data Automated count Basophils 0.1 - 2.0 % Normal No Nov 27 /2016 leukocyte on in 12:27 PM s in source Blood by data Automated count Eosinophi 0.0 - 0.4 K/mm3 Normal No Nov 27 ls 2016 [#/volume on in 12:27 PM ] in source Blood by data Automated count Eosinophi 0.1 - % Normal No Nov 27 ls/100 12.0 2016 leukocyte on in 12:27 PM s in source Blood by data Automated count Granulocy 1.8 - 7.8 K/mm3 High No Nov 27 tiesha inform2016 [#/volume on in 12:27 PM ] in source Blood by data Automated count Granulocy 37.0 - % High No Nov 27 tiesha/100 80.0 inform2016 leukocyte on in 12:27 PM s in source Blood by data Automated count Hematocri 37.0 - % Low No Nov 27 t [Volume 47.0 informati 2016 on in 12:27 PM Fraction] source of Blood data Hemoglobi 12.2 - g/dL Low No Nov 27 n 16.2 informati 2016 [Mass/vol on in 12:27 PM ume] in source Blood data Lymphocyt 0.7 - 4.5 K/mm3 Normal No Nov 27 es inform2016 [#/volume on in 12:27 PM ] in source Unspecifi data ed specimen by Automated count Lymphocyt 10 - 50.0 % Low No Nov 27 es inform2016 [#/volume on in 12:27 PM ] in source Unspecifi data ed specimen by Automated count Erythrocy 27 - 31.2 pg Low No Nov 27 te mean inform2016 corpuscul on in 12:27 PM ar source hemoglobi data n [Entitic mass] Erythrocy 31.8 - g/dl Low No Nov 27 te mean 35.4 inform2016 corpuscul on in 12:27 PM ar source hemoglobi data n concentra tion [Mass/vol ume] by Automated count Erythrocy 82.2 - fl Low No Nov 27 te mean 97.8 inform2016 corpuscul on in 12:27 PM ar volume source [Entitic data volume] by Automated count Monocytes 0.1 - 1.0 K/mm3 High No Nov 27 inform2016 [#/volume on in 12:27 PM ] in source Blood by data Automated count Monocytes 1.7 - 9.3 % Normal No Nov 27 /100 informati 2016 leukocyte on in 12:27 PM s in source Blood by data Automated count Platelet 7.4 - fl Low No Nov 27 mean 10.4 inform2016 volume on in 12:27 PM [Entitic source volume] data in Blood by Automated count Platelets 142 - 424 K/mm3 High No Nov 27 informati 2016 [#/volume on in 12:27 PM ] in source Blood data Erythrocy 4.2 - 5.4 M/mm3 Low No Nov 27 tiesha informati 2016 [#/volume on in 12:27 PM ] in source Amniotic data fluid Erythrocy 11.5 - % High No Nov 27 te 17.5 informati 2016 distribut on in 12:27 PM ion width source [Entitic data volume] by Automated count Leukocyte 4.8 - K/MM3 High No Nov 27 s 10.8 informati 2016 [#/volume on in 12:27 PM ] [...] ve Eosinophi 0 - 3 % Normal No Nov 27 ls/100 informati 2016 leukocyte on [...] Nov 27 cytosis informa informa informa informa 2017 tion in tion in tion in tion in 12:27 [Presen source source source source PM ce] in data data data data Blood by Light microsc opy Neutrophi 42 - 76 % High No Nov 27 ls informati 2016 [#/volume on in 12:27 PM ] [...] 3.2 % High No Nov 27 ytes informati 2016 [#/volume on in 12:27 PM ] [...] 234 U/L High No Nov 27 dehydroge inform2016 nase on in 12:27 PM [Enzymati source c data activity/ volume] in Unspecifi ed specimen Thyrotropin [Units/volume] in Serum or Plasma Observa Value Referen Units Interpr Notes Date tion ce etation Range Thyrotrop 0.358 - uIU/ml No No Nov 27 in 3.740 informati informati 2016 [Units/vo on in on in 12:27 PM [...] No A Nov 26 informa informa positiv 2016 tion in tion in e SIM 2:35 PM source source result data data may occur in healthy individ uals (lowtit er) or be associa lata with a variety of disease s. Seeinte rpretat ion chart which is not all inclusi ve:Kimberly lexii Antigen Detecte d Suggest ed Disease Associa tion--- ------- - ------- ------- -- ------- ------- ------- ------- -Homoge neous DNA(ds, ss), SLE - High titersN ucleoso mes,His tones Drug-in duced SLE---- ------- ------- ------- -- ------- ------- ------- ------- -Speckl ed Sm, EYE CLINIC MANAGER, SCL-70, SLE,MCT D,PSS (diffus e form),S S-A/SS- B Sjogren s------ ----- ------- ------- -- ------- ------- ------- ------- -Nucleo lar SCL-70, PM-1/SC L High titers Sclerod mirna,PM /DM---- ------- ------- ------- -- ------- ------- ------- ------- -Centro mere Centrom ere PSS (limite d form) w/Crest ed e variabl e------ ----- ------- ------- -- ------- ------- ------- ------- -Nuclea r Dot Sp100,p 80-coil in Primary Biliary Cirrhos is----- ------ ------- ------- -- ------- ------- ------- ------- -Nuclea r [id number], Primary Biliary Cirrhos isMembr ane joe A,B,C-- ------- -- ------- ------- -- ------- ------- ------- ------- -Perfor med at: [facility] [place], [place] [id number] Directo r: Jorge wooten PhD, Phone: [phone] Nuclear . No High No Nov 26 Ab [...] No Performed Nov 26 (Vitamin informati at: 2016 2:35 B12) on in - [facility] PM [Mass/vol source ume] in data [id number] Serum [address] [place], [place] [id number] Automation Test Developer: Jorge Guillen PhD, Phone: [phone] Cold agglutinin [Titer] in Serum or Plasma by Agglutination Observa Value Referen Units Interpr Notes Date tion ce etation Range Cold Neg <1:32 No No Performed Nov 26 agglutini informati informati at: 2017 2:35 n [Titer] on in on in - [facility] PM in Serum source source or data data [facility] Plasma by [id number], [place], [place] [id number] Automation Test Developer: Hugo Leigh MD, Phone: [phone] Folate [Mass/volume] in Serum or Plasma Observa Value Referen Units Interpr Notes Date tion ce etation Range Folate >3.0 ng/mL No A serum Nov 26 [Mass/vol informati folate 2016 2:35 ume] in on in concentra PM Serum or source tion of Plasma data less than 3.1 ng/mL isconside red to represent clinical deficienc y.Perform ed at: [facility] [place], [place] [id number] Automation Test Developer: Jorge Guillen PhD, Phone: [phone] Haptoglobin [Mass/volume] in Serum or Plasma Observa Value Referen Units Interpr Notes Date tion ce etation Range Haptoglob 34 - 200 mg/dL No Performed Nov 26 in informati at: CB 2017 2:35 [Mass/vol on in - [facility] PM ume] in source Serum or data [id number] Plasma [address] [place], [place] [id number] Automation Test Developer: Jorge Guillen PhD, Phone: [phone] [id number] dehydrogenase [Enzymatic activity/volume] in Red Blood Cells [...] U/L High No Nov 26 dehydroge informati 2016 2:35 nase on in PM [Enzymati source [...] U/L Normal No Nov 26 phosphata informati 2016 2:35 se on in PM [Enzymati source [...] 37 U/L Low No Nov 26 informati 2016 2:35 aminotran on in PM sferase source [...] Notes Date ti ce etation Range Blood POSITIV NEGATIV No Abnorma No Nov 26 group E E informa l inform2016 antibod tion in tion in 2:35 PM [...] Abnorma No Nov 26 [Presen informa l inform2016 ce] in tion in tion in 2:35 [...] No No Nov 26 nogen informa informa 2017 [Presen tion in tion in 2:35 PM ce] in source source Urine data data by Test strip Urinalysis dipstick W Reflex Microscopic panel in Urine Observa Value Referen Units Interpr Notes Date tion ce etation Range Appeara CLEAR CLEAR No No No Nov 26 nce of informa informa informa 2017 Urine tion [...] No No Nov 26 ial informa informa 2016 cells.s tion in tion in 2:35 PM [...] data Hemoglobi 12.2 - g/dL Low No Oct 27 n 16.2 informati 2017 [Mass/vol on in 11:35 AM ume] in source Blood data Blood product special preparation [Type] Observa Value Referen Units Interpr Notes Date ti ce etation Range Blood BLOOD No No No BLOOD Nov 26 product UNIT informa informa informa UNIT # 2017 RELEASE ti in in in : W0382 8:28 AM special source source source 17 data data data [id number] prepara RELEASE tion D [Type] 7GGregg vee A POSITIV E Blood product special preparation [Type] Observa Value Referen Units Interpr Notes Date ti ce etation Range Blood BLOOD No No No BLOOD Nov 25 product UNIT informa informa informa UNIT # 2017 RELEASE ti in in in : W0382 3:08 PM special source source source 17 data data data [id number] prepara RELEASE tion D [Type] 7Boymalena ,Darin aA POSITIV E Blood type & Crossmatch panel in Blood Observa Value Referen Units Interpr Notes Date ti ce etation Range Blood NEGATIV NEGATIV No No No Nov 25 group E E informa informa informa 2017 antibod tion in ti in ti in 10:25 y source source source AM screen data data data [Presen ce] in Serum or Plasma Rh POSITIV No No No No Nov 25 [Type] E informa informa informa informa 2016 in tion in tion in tion in tion in 10:25 Blood source source source source AM data data data data ABO A No No No No Nov 25 group informa informa informa informa 2016 [Type] tion in tion in tion in ti in 10:25 in source source source source [...] Blood Observa Value Referen Units Interpr Notes ce etation Range Hematocri 37.0 - % Low alert Nov 25 t [Volume 47.0 2017 CRITICAL 10:25 AM Fraction] RESULTS of Blood RESU LTS CALLED TO: BANDAR 11/25/16 1045 Darrin Husain Hemoglobin [Mass/volume] in Blood Observa Value Referen Units Interpr Notes ce etation Range Hemoglobi 12.2 - g/dL Low alert Nov 25 n 16.2 2016 [Mass/vol CRITICAL 10:25 AM ume] in RESULTS Blood RESU LTS CALLED TO: BANDAR 11/25/16 1045 Darrin Husain CBC W Auto Differential panel in Blood Observa Value Referen Units Interpr Notes ce etation Range Basophils 0 - 0.2 K/MM3 Normal No Nov 25 informati 2016 9:55 [#/volume on in AM ] in source Blood by data Automated count Basophils 0.1 - 2.0 % Normal No Nov 25 informati 2017 [...] 37.0 - % Normal No Nov 25 tiesha/ 80.0 informati 2016 9:55 leukocyte on in AM s in source Blood by data Automated count Hematocri 37.0 - % Low alert Nov 25 t [Volume 47.0 2016 9:55 CRITICAL AM Fraction] RESULTS of Blood RESU LTS CALLED TO: VIRIDIANA.[facility] 11/25/16 1005 Darrin Husain e Hemoglobi 12.2 - g/dL Low alert Nov 25 n 16.2 2016 9:55 [Mass/vol CRITICAL AM ume] in RESULTS Blood RESU LTS CALLED TO: VIRIDIANA.[facility] 11/25/16 1005 Darrin Husain e Lymphocyt 0.7 [...] Low No Nov 25 te mean informati 2017 9:55 corpuscul on in AM ar source hemoglobi data n [Entitic mass] Erythrocy 31.8 - g/dl Low No Nov 25 te mean 35.4 informati 2017 9:55 corpuscul on in AM ar source hemoglobi data n concentra tion [Mass/vol ume] by Automated count Erythrocy 82.2 - fl Low No Nov 25 te mean 97.8 informati 2017 9:55 corpuscul on in AM ar volume source [Entitic data volume] by Automated count Monocytes 0.1 - 1.0 K/mm3 Normal No Nov 25 informati 2016 9:55 [#/volume on in AM ] in source Blood by data Automated count Monocytes 1.7 - 9.3 % Normal No Oct 26 /100 informati 2017 9:55 leukocyte on in AM s in source Blood by data Automated count Platelet 7.4 - fl Low No Nov 25 mean 10.4 informati 2017 9:55 volume on in AM [Entitic source volume] data in Blood by Automated count Platelets 142 - 424 K/mm3 High No Nov 25 informati 2016 9:55 [#/volume on in AM ] in source Blood data Erythrocy 4.2 - 5.4 M/mm3 Low No Nov 25 tiesha informati 2016 9:55 [#/volume on in AM ] in source Amniotic data fluid Erythrocy 11.5 - % High No Nov 25 te 17.5 informati 2016 9:55 distribut on in AM ion width source [Entitic data volume] by Automated count Leukocyte 4.8 - K/MM3 Normal No Nov 25 s 10.8 informati 2016 9:55 [#/volume on in AM ] in source Blood data Iron and TIBC Observa Value Referen Units Interpr Notes Date tion ce etation Range Iron 250 - 450 ug/dL No No Nov 11 binding informati informati 2017 capacity on in on in 11:38 AM [Mass/vol source source ume] in data data Serum or Plasma Iron 131 - 425 ug/dL No No Oct 12 binding informati informati 2017 capacity. on in on in 11:38 AM unsaturat source source ed data data [Mass/vol ume] in Serum or Plasma Iron 27 - 159 ug/dL Low No Srini 12 [Mass/vol informati 2017 ume] in on in 11:38 AM Serum or source Plasma data Iron 15 - 55 % Low Performed Nov 11 saturatio at: CB 2017 n [Mass] - [facility] 11:38 AM in Serum or Plasma [address] [id number] Automation Test Developer: Jorge Guillen PhD, Phone: [phone] Ferritin [Mass/volume] in Serum or Plasma Observa Value Referen Units Interpr Notes Date tion ce etation Range Ferritin 8 - 388 ng/mL Normal No Nov 11 [Mass/vol informati 2016 ume] in on in 11:38 AM Serum or source Plasma data CBC W Auto Differential panel in Blood Observa Value Referen Units Interpr Notes Date tion ce etation Range Basophils 0 - 0.2 K/MM3 Normal No Nov 11 informati 2016 [#/volume on in 11:38 AM ] in source Blood by data Automated count Basophils 0.1 - 2.0 % Normal No Oct 12 /100 informati 2016 leukocyte on in 11:38 AM s in source Blood by data Automated count Eosinophi 0.0 - 0.4 K/mm3 Normal No Nov 11 ls informati 2016 [#/volume on in 11:38 AM ] in source Blood by data Automated count Eosinophi 0.1 - % Normal No Nov 11 ls/100 12.0 informati 2016 leukocyte on in 11:38 AM s in source Blood by data Automated count Granulocy 1.8 - 7.8 K/mm3 Normal No Nov 11 tiesha informati 2016 [#/volume on in 11:38 AM ] in source Blood by data Automated count Granulocy 37.0 - % Normal No Nov 11 tiesha/100 80.0 ati 2016 leukocyte on in 11:38 AM s [...] pg Low No Nov 11 te mean informati 2017 corpuscul on in 11:38 AM ar source hemoglobi data n [Entitic mass] Erythrocy 31.8 - g/dl Low No Nov 11 te mean 35.4 inform2016 corpuscul on in 11:38 AM ar source hemoglobi data n concentra tion [Mass/vol ume] by Automated count Erythrocy 82.2 - fl Low No Nov 11 te mean 97.8 informati 2016 corpuscul on in 11:38 AM ar volume source [Entitic data volume] by Automated count Monocytes 0.1 - 1.0 K/mm3 Normal No Oct 12 informati 2016 [#/volume on in 11:38 AM ] in source Blood by data Automated count Monocytes 1.7 - 9.3 % Normal No Oct 12 /100 informati 2016 leukocyte on in 11:38 [...] Erythrocy 4.2 - 5.4 M/mm3 Normal No Oct 12 tiesha informati 2016 [#/volume on in 11:38 AM ] in source Amniotic data fluid Erythrocy 11.5 - % High No Nov 11 te 17.5 informati 2016 distribut on in 11:38 AM ion width source [Entitic data volume] by Automated count Leukocyte 4.8 - K/MM3 Normal No Nov 11 s 10.8 informati 2016 [#/volume on in 11:38 AM ] in source Blood data Blood type & Indirect antibody screen panel in Blood Observa Value Referen Units Interpr Notes Date tion ce etation Range Blood NEGATIV NEGATIV No No No Nov 07 group E E informa informa informa 2017 [...] ABO A No No No No Nov 07 group informa informa informa informa 2017 [Type] tion in tion in tion in tion in 10:15 in source source source source AM Blood data data data data Activated partial thrombplastin time (aPTT) in Platelet poor plasma by Coagulation assay Observa Value Referen Units Interpr Notes Date ti ce etation Range Activated 23.6 - SECONDS Normal No Oct 8 partial 34.0 informati 2017 9:10 thrombpla on in AM stin time source (aPTT) data in Platelet poor plasma by Coagulati on assay Comprehensive metabolic 2000 panel in Serum or Plasma Observa Value Referen Units Interpr Notes Date ti ce etation Range Albumin/G 1.1 - 1.8 No Low No Oct 8 lobulin informati informati 2017 9:10 [Mass on in on in AM ratio] in source source Serum or data data Plasma Albumin 3.4 - 5.0 gm/dL Low No Oct 8 [Mass/vol informati 2017 9:10 ume] in on in AM Serum or source Plasma data Alkaline 46 - 116 U/L Normal No Oct 8 phosphata informati 2016 9:10 se on in AM [Enzymati source c data activity/ volume] in Serum or Plasma Bilirubin 0.2 - 1.0 mg/dL Normal No Oct 8 .total informati 2016 9:10 [Mass/vol on in AM ume] in [...] Chloride 98 - 107 mmoL/L Normal No Oct 8 [Moles/vo informati [...] 59- ML/MIN Low REFERENCE Nov 07 RANGE: 2016 9:10 glomerula >60 AM r ML/MIN/1. filtratio 73 SQUARE n rate METERSIf (GF this patient is -A merican, then multiply theresult by 1.210. Globulin 1.3 - 3.2 gm/dL High No Nov 07 [Mass/vol informati 2016 9:10 ume] in on in AM Serum source data Glucose 74 - 106 mg/dL Normal No Nov 07 [Mass/vol informati 2016 9:10 ume] in on in AM Serum or source Plasma data Potassium 3.5 - 5.1 mmoL/L Normal No Nov 07 informati 2016 9:10 [Moles/vo on in AM lume] in source Serum or data Plasma Sodium 136 - 145 mmoL/L Normal No Nov 07 [Moles/vo informati 2016 9:10 lume] in on in AM Serum or source Plasma data Aspartate 15 - 37 U/L Low No Nov 07 inform2016 9:10 aminotran on in AM sferase source [Enzymati data c activity/ volume] in Serum or Plasma Alanine 12 - 78 U/L Normal No Nov 07 aminotran informati 2016 9:10 sferase on in AM [Enzymati source [...] - 0.2 K/MM3 Normal No Nov 07 inform2016 9:10 [#/volume on in AM ] in source Blood by data Automated count Basophils 0.1 - 2.0 % Normal No Oct 8 / informati 2016 9:10 leukocyte on in AM [...] K/mm3 Normal No Nov 07 tiesha informati 2017 9:10 [#/volume on in AM ] in source Blood by data Automated count Granulocy 37.0 - % Normal No Nov 07 tiesha/100 80.0 informati 2017 9:10 leukocyte on in AM s in source Blood by data Automated count Hematocri 37.0 - % Low alert Nov 07 t [Volume 47.0 2017 9:10 CRITICAL AM Fraction] RESULTS of Blood RESU LTS CALLED TO: GUILLERMO 11/07/16 09Darrin Rey CRITICAL RESULTS RESU LTS CALLED TO: GUILLERMO 11/07/16 0937 Darrin Husain Hemoglobi 12.2 - g/dL Low alert Nov 07 n 16.2 2016 9:10 [Mass/vol CRITICAL AM ume] in RESULTS Blood RESU LTS CALLED TO: GUILLERMO 11/07/16 0923 Darrin Husain Lymphocyt 0.7 - 4.5 K/mm3 Normal No Nov 07 es informati 2017 9:10 [#/volume on in AM ] in source Unspecifi data ed specimen by Automated count Lymphocyt 10 - 50.0 % Normal No Nov 07 es informati 2016 9:10 [#/volume on in AM ] in source Unspecifi data ed specimen by Automated count Erythrocy 27 - 31.2 pg Low No Nov 07 te mean informati 2017 9:10 corpuscul on [...] Low No Oct 8 mean 10.4 informati 2016 9:10 volume on in AM [Entitic source volume] data in Blood by Automated count Platelets 142 - 424 K/mm3 Normal No Oct 8 informati 2016 9:10 [#/volume on in AM ] in source Blood data Erythrocy 4.2 - 5.4 M/mm3 Low No Oct 8 tiesha informati 2016 9:10 [#/volume on in AM ] in source Amniotic data fluid Erythrocy 11.5 - % High No Oct 8 te 17.5 informati 2016 9:10 distribut on in AM ion width source [Entitic data volume] by Automated count Leukocyte 4.8 - K/MM3 Normal No Oct 8 s 10.8 informati 2016 9:10 [#/volume on in AM ] in source Blood data
--- OUTSIDE RECORDS SUMMARY | 2017-01-15 13:43 | External Medical Summary Rpt ---
[...] Interpr Notes ce etation Range COMMENTS TO LAUNCH OPERATOR: PREOP ORDER Choriogon NEG No No Sena [...] source source source 17 data data data [id number] prepara RELEASE tion D [Type] 7 1730Spa rks,Lc nO POSITIV E Blood product special preparation [Type] Observa Value Referen Units Interpr Notes Date tion ce etation Range Blood BLOOD No No No BLOOD Jan 12 product UNIT informa informa informa UNIT # 2017 RELEASE tion in in in : W0382 3:02 PM special source source source 17 data data data [id number] prepara RELEASE tion D [Type] 7NowalterR cecyardO POS Hemoglobin & Hematocrit panel in Blood Observa Value Referen Units Interpr Notes Date tion ce etation Range COMMENTS TO LAUNCH OPERATOR: POST BLOOD TO BE DRAWN AT [...] source source 17 PM data data data [id number] prepara [id number] tion LEASED [Type] 7 O'Kirt, Heena Blood product special preparation [Type] Observa Value Referen Units Interpr Notes Date tion ce etation Range Blood BLOOD No No No BLOOD Jan 11 product UNIT informa informa informa UNIT # 2017 RELEASE tion in in tion in : W0382 10:28 special source source source 17 AM data data data [id number] prepara [id number] tion LEASED [Type] 7O'Kirt ,Jennifer n Blood [...] ANTI-E. or SPECIME Plasma N SENT TO [facility] LAB FOR FURTHER TESTING ANDANTI [...] <3.9Smoke rs <5.6Perfo rmed at: - [facility] [address] [id number] Tan Room Supervisor: Jorge Guillen PhD, Phone: [phone] Urea nitrogen [Mass/volume] in Serum or [...] in RESULTS Blood RESU LTS CALLED TO: MAYR 12/18/16 1204 Darrin Husain Blood product special preparation [Type] Observa Value Referen Units Interpr Notes Date ti ce etation Range Blood BLOOD No No No BLOOD Dec 18 product UNIT informa informa informa UNIT # 2017 RELEASE tion in ti in in : W0382 9:27 AM special source source source 17 data data data [id number] prepara RELEASE tion D [Type] 7GGregg vee [...] LTS CALLED TO: CAITY @0943 12/18/16 BY LAB.[facility] [address] Hemoglobin [Mass/volume] in [...] deficienc y.Perform ed at: CB - [facility] [id number] [place], [place] [id number] Tan Room Supervisor: Jorge Guillen PhD, Phone: [phone] Haptoglobin [Mass/volume] in Serum or Plasma Observa Value Referen Units Interpr Notes Date tion ce etation Range Haptoglob 34 - 200 mg/dL No Performed Nov 27 in informati at: CB 2016 [Mass/vol on in - [facility] 12:27 PM ume] in source Serum or data [id number] Plasma [address] [place], [place] [id number] Tan Room Supervisor: Jorge Guillen PhD, Phone: [phone] CBC W Auto Differential panel in [...] ------- ------- ------- ------- -Speckl ed Sm, XEROX MACHINE OPERATOR, SCL-70, SLE,MCT D,PSS (diffus e form),S S-A/SS- [...] ------- ------- ------- ------- -Perfor med at: [facility] [place], [place] [id number]Lab Directo r: Jorge wooten PhD, Phone: [phone] Nuclear . No High No Nov [...] [facility] PM [Mass/vol source ume] in data [id number] Serum [address] [place], [place] [id number] Tan Room Supervisor: Jorge Guillen PhD, Phone: [phone] Cold agglutinin [Titer] in Serum or Plasma by Agglutination Observa Value Referen Units Interpr Notes Date tion ce etation Range Cold Neg <1:32 No No Performed Nov 26 agglutini informati informati at: 2017 2:35 n [Titer] on in on in - [facility] PM in Serum source source or data data [facility] Plasma by [address], [place], [place] [id number] Tan Room Supervisor: Hugo Leigh MD, Phone: [phone] Folate [Mass/volume] in Serum or Plasma Observa Value Referen Units Interpr Notes Date tion ce etation Range Folate >3.0 ng/mL No A serum Nov 26 [Mass/vol informati folate 2016 2:35 ume] in on in concentra PM Serum or source tion of Plasma data less than 3.1 ng/mL isconside red to represent clinical deficienc y.Perform ed at: [facility] [place], [place] [id number] Tan Room Supervisor: Jorge Guillen PhD, Phone: [phone] Haptoglobin [Mass/volume] in Serum or Plasma Observa Value Referen Units Interpr Notes Date tion ce etation Range Haptoglob 34 - 200 mg/dL No Performed Nov 26 in informati at: CB 2017 2:35 [Mass/vol on in - [facility] PM ume] in source Serum or data [id number] Plasma [address] [place], [place] [id number] Tan Room Supervisor: Jorge Guillen PhD, Phone: [phone] Jqwesiq-4-Cjuebrvdq dehydrogenase [Enzymatic activity/volume] in Red Blood Cells [...] source source source 17 data data data [id number] prepara RELEASE tion D [Type] 7GGregg vee A POSITIV E Blood product special preparation [Type] Observa Value Referen Units Interpr Notes Date ti ce etation Range Blood BLOOD No No No BLOOD Nov 25 product UNIT informa informa informa UNIT # 2017 RELEASE ti in in in : W0382 3:08 PM special source source source 17 data data data [id number] prepara RELEASE tion D [Type] 7Boymalena ,Darin [...] RESULTS of Blood RESU LTS CALLED TO: VIRIDIANA.[facility] 11/25/16 1005 Darrin Husain e Hemoglobi 12.2 - g/dL Low alert Nov 25 n 16.2 2016 9:55 [Mass/vol CRITICAL AM ume] in RESULTS Blood RESU LTS CALLED TO: VIRIDIANA.[facility] 11/25/16 1005 Darrin Husain e Lymphocyt 0.7 [...] [facility] 11:38 AM in Serum or Plasma [address] [id number] Tan Room Supervisor: Jorge Guillen PhD, Phone: [phone] Ferritin [Mass/volume] in Serum or Plasma [...]
[2017-01-15 15:46] LABS: URINE BILIRUBIN - DIPSTICK NEGATIVE (NEG); URINE BLOOD NEGATIVE (NEG)
[2017-01-15 17:01] VITALS: BP 114/85
== END 2017-01-15 14:00 | disposition short-term general hospital (02) ==
LOC: 2ND 06:14 → SDC 06:14 → EDSTATUS 07:30 → 2ND 07:30 → SDC 14:00
PROVIDERS: Surgery
PROC: 0DB90ZZ Excision of Duodenum, Open Approach (ICD-10-PCS; 2017-01-15)
PROC: 0DB80ZZ Excision of Small Intestine, Open Approach (ICD-10-PCS; principal; 2017-01-15 07:30)
PROC: 0DBF0ZZ Excision of Right Large Intestine, Open Approach (ICD-10-PCS; principal; 2017-01-15 07:30)
DX: C18.2 Malignant neoplasm of ascending colon (principal); C78.4 Secondary malignant neoplasm of small intestine
CPT/HCPCS: J2405; J2710

== ENCOUNTER 2017-03-13 08:10 | Outpatient (CLI) | payer MEDICAID ==
[2017-03-13] VITALS (22 sets, daily range): BP systolic 86–118; BP diastolic 45–76
[~2017-03-13] VITALS: Ht 170.2 cm; Wt 77.1 kg
[2017-03-13 09:25] LABS: HEMOGLOBIN 12.2 g/dL (12.2-16.2); LYMPH # 1.8 K/mm3 (0.7-4.5); LYMPH % 27.2 % (10-50.0)
[2017-03-13 09:28] LABS: URINE BILIRUBIN - DIPSTICK NEGATIVE (NEG); URINE BLOOD NEGATIVE (NEG)
[2017-03-13 09:36] LABS: BUN 18 mg/dL (7-18); GFR (ESTIMATED) 76 ML/MIN (59-)
[2017-03-13 09:47] LABS: URINE SQUAMOUS CELLS OCC #/hpf (0-5)
[2017-03-26] MEDS ORDERED: XELODA500 MG PO (10:19)
[2017-04-04] MEDS ORDERED: SINGULAIR10 MG PO (13:11)
== END 2017-03-13 15:55 | disposition home or self-care (01) ==
LOC: COP 08:10
PROVIDERS: Internal Medicine
DX: C18.9 Malignant neoplasm of colon, unspecified (principal); C78.4 Secondary malignant neoplasm of small intestine
CPT/HCPCS: J1642; J7060; J9035; J9263; Q0166

== ENCOUNTER 2017-04-08 09:00 | Outpatient (CLI) | payer MEDICAID ==
[~2017-04-08 09:00] MED LIST changes: +SINGULAIR10 MG PO; +XELODA500 MG PO
[2017-04-08 09:15] VITALS: BP 122/74
[2017-04-08 09:30] VITALS: BP 118/70
[2017-04-08 09:38] LABS: BUN 11 mg/dL (7-18); GFR (ESTIMATED) 58 ML/MIN (59-)
[2017-04-08 10:00] VITALS: BP 116/68
[2017-04-08 10:30] VITALS: BP 117/55
[2017-04-08 11:15] VITALS: BP 120/78
[2017-04-09] MEDS ORDERED: PROMETHAZINE HC25 M1 PO (08:53)
[2017-04-09] MEDS ORDERED: LOMOTIL 0.025 M1 TAB PO (08:53)
== END 2017-04-08 17:42 | disposition home or self-care (01) ==
LOC: COP 09:00
PROVIDERS: Internal Medicine
DX: C18.9 Malignant neoplasm of colon, unspecified (principal)
CPT/HCPCS: J1642

== ENCOUNTER 2017-04-09 08:00 | Outpatient (CLI) | payer MEDICAID ==
[2017-04-09 08:39] VITALS: BP 125/83
[2017-04-09] MEDS ORDERED: LOMOTIL 0.025 M1 TAB PO (08:53)
[2017-04-09] MEDS ORDERED: PROMETHAZINE HC25 M1 PO (08:53)
[2017-04-09 09:09] VITALS: BP 122/87
[2017-04-09 09:39] VITALS: BP 131/81
[2017-04-09 10:09] VITALS: BP 128/80
[2017-04-09 10:39] VITALS: BP 126/76
== END 2017-04-09 10:50 | disposition home or self-care (01) ==
LOC: COP 08:00
DX: C18.9 Malignant neoplasm of colon, unspecified (principal)
CPT/HCPCS: J1642; J2405

== ENCOUNTER 2017-04-10 08:30 | Outpatient (CLI) | payer MEDICAID ==
[~2017-04-10 08:30] MED LIST changes: +LOMOTIL 0.025 M1 TAB PO; +PROMETHAZINE HC25 M1 PO
[2017-04-10 08:48] VITALS: BP 117/64
[2017-04-10 09:20] VITALS: BP 119/76
[2017-04-10 09:50] VITALS: BP 121/69
[2017-04-10 10:20] VITALS: BP 118/67
[2017-04-10 10:50] VITALS: BP 122/61
[2017-04-10 11:05] VITALS: BP 117/70
== END 2017-04-10 11:05 | disposition home or self-care (01) ==
LOC: COP 08:30
DX: C18.9 Malignant neoplasm of colon, unspecified (principal)
CPT/HCPCS: J1642

== ENCOUNTER 2017-04-11 08:44 | Outpatient (CLI) | payer MEDICAID ==
[~2017-04-11] VITALS: Ht 170.2 cm; Wt 73.9 kg
[2017-04-11 08:50] VITALS: BP 124/71
[2017-04-11 09:20] VITALS: BP 118/71
[2017-04-11 09:50] VITALS: BP 134/65
[2017-04-11 10:20] VITALS: BP 124/71
[2017-04-11 10:50] VITALS: BP 125/73
== END 2017-04-11 11:25 | disposition home or self-care (01) ==
LOC: COP 08:44
PROVIDERS: Internal Medicine
DX: C18.9 Malignant neoplasm of colon, unspecified (principal)
CPT/HCPCS: J1642

== ENCOUNTER → 2017-05-16 | Outpatient (CLI) | payer MEDICAID ==
[2017-05-16 09:12] LABS: HEMOGLOBIN 13.4 g/dL (12.2-16.2); LYMPH # 1.9 K/mm3 (0.7-4.5); LYMPH % 24.6 % (10-50.0)
[2017-05-16 09:16] LABS: BUN 12 mg/dL (7-18)
[2017-05-16 09:18] LABS: GFR (ESTIMATED) 66 ML/MIN (59-)
--- NOTE | 2017-05-16 13:30 | RADIOLOGY REPORT PS360 ---
CT CHEST W/ CONTRAST INDICATION: Follow-up colon cancer COLON CA ORDERING PHYSICIAN: Chetan Arciniega MD PATIENT AGE: 51 years COMPARISON: 12/23/2016 TECHNIQUE: Axial images are obtained with contrast. Sagittal and coronal reformatted images are reviewed as well. FINDINGS: Right IJ Mediport catheter is present. No mediastinal or hilar mass or adenopathy. No lobar consolidation or collapse. No suspicious pulmonary nodules. There are mild fibrotic changes in the left lower lobe. No bony structure process is evident. IMPRESSION: Stable CT appearance of the chest. No convincing evidence of metastatic disease
--- NOTE | 2017-05-16 13:41 | RADIOLOGY REPORT PS360 ---
CT ABD PELVIS W/ CONTRAST CLINICAL INDICATION: Follow-up: Cancer COLON CA ORDERING PHYSICIAN: Chetan Arciniega MD PATIENT AGE: 51 years COMPARISON: None TECHNIQUE: Axial images obtained with sagittal and coronal reformats. PROCEDURE: Oral Contrast: Redicat IV Contrast: 75 mL's of Isovue-370. FINDINGS: The liver, spleen, pancreas, gallbladder, and adrenal glands have an unremarkable appearance. No renal calculi or hydronephrosis. No ureteral calculi. No obvious renal mass There are postsurgical changes of the abdomen from prior right hemicolectomy and right lower quadrant ileostomy. Previously noted right colonic mass has been removed. There was concern of invasion of the duodenum on the previous CT scan. The duodenum now has an unremarkable appearance. There is minimal thickening of the right anterior pararenal fascia nonspecific. No abdominal or pelvic adenopathy. No pelvic mass or abnormal fluid collection or focal inflammatory change. No acute bony anomalies. IMPRESSION: 1. There has been an interval partial hemicolectomy of the right colon with right lower quadrant ileostomy. 2. No evidence of hepatic or adrenal metastasis. No enlarged lymph nodes apparent
== END ==
LOC: RAD 05-07 09:45
PROVIDERS: Internal Medicine
DX: C18.9 Malignant neoplasm of colon, unspecified (principal)
CPT/HCPCS: Q9967